=== PATIENT | female | born 1955 | race Caucasian/White ===

== ENCOUNTER 2024-05-08 10:43 | Outpatient (CLI) | payer MEDICARE, MEDICAID, SELFPAY ==
--- NOTE | ~2024-05-08 | CT_ITS ---
CT Scan of the Chest without Contrast: Clinical Indication: Lung cancer screening, nicotine dependence Technique: Contiguous sections were acquired throughout the chest without intravenous contrast. Dose reduction technique was used on this scan by utilizing automated exposure control and iterative recon struction technique. The dose-length product (DLP) was 83.86 mGy-cm. Findings: There is no evidence of any significant mediastinal, hilar or axillary lymphadenopathy. The mediastin al soft tissues appear normal. There is no evidence of pleural or pericardial effusion. There is right basilar curvilinear scarring with calcified granuloma or possibly suture line. Images through the upper abdomen reveal no abnormalities. Impression: Lung RADS 2: Benign appearance. 12 month follow-up screening CT advised. Reviewed, dictated and finalized at location . Impression: Lung RADS 2: Benign appearance. 12 month follow-up screening CT advised.
== END 2024-05-08 10:44 | disposition home or self-care (01) ==
LOC: MICIMG 10:44
PROVIDERS: PCP Family Medicine; Visit Provider Family Medicine
DX: Z12.2 Encounter for screening for malignant neoplasm of respiratory organs (principal); Z87.891 Personal history of nicotine dependence
CPT/HCPCS: 71271

== ENCOUNTER 2024-07-04 13:32 | Outpatient (CLI) | payer MEDICARE, SELFPAY ==
--- NOTE | ~2024-07-04 | MR_ITS ---
EXAMINATION: MR shoulder LT wo con DATE: 07/04/2024 14:41 INDICATION: Left shoulder pain. TECHNIQUE: Magnetic resonance imaging (MRI) of the left shoulder was performed without intravenous co ntrast. Sequences included axial PD-weighted FS FSE, coronal oblique PD-weighted FS FSE and T2-weight ed FS FSE, and sagittal oblique T2-weighted FS FSE and T1-weighted FSE. COMPARISON: None. FINDINGS: Coracoacromial arch: The acromion undersurface is curved in morphology (type II). There is severe acromioclavicular joint osteoarthritis. There is mild subacromial/subdeltoid bursitis. Rotator cuff: There is mild supraspinatus and infraspinous tendinopathy. Teres minor tendon is normal. Subscapulari s tendon is normal. No tear. There is no asymmetric fatty atrophy of the rotator cuff muscle bellies. Biceps tendon and glenoid labrum: Biceps tendon is in bicipital groove. Intra-articular biceps tendon is normal. The glenoid labrum is normal. Fluid: There is no glenohumeral joint effusion. Bones/cartilage: Glenoid cartilage is normal. Humeral head cartilage is normal. IMPRESSION: 1. Mild rotator cuff tendinopathy. No tear. 2. Mild subacromial/subdeltoid bursitis. 3. Severe acromioclavicular joint osteoarthritis. Reviewed, dictated and finalized at location A. E SUGAR MAKER
--- NOTE | ~2024-07-04 | MR_ITS ---
EXAMINATION: MR shoulder RT wo con DATE: 07/04/2024 14:24 INDICATION: Right shoulder pain. TECHNIQUE: Magnetic resonance imaging (MRI) of the right shoulder was performed without intravenous c ontrast. Sequences included axial PD-weighted FS FSE, coronal oblique PD-weighted FS FSE and T2-weigh pantera FS FSE, and sagittal oblique T2-weighted FS FSE and T1-weighted FSE. COMPARISON: None. FINDINGS: Coracoacromial arch: The acromion undersurface is curved in morphology (type II). There is severe acromioclavicular joint osteoarthritis. There is mild subacromial/subdeltoid bursitis. Rotator cuff: There is moderate supraspinatus and infraspinatus tendinopathy. Teres minor tendon is normal. Subscap ularis tendon is normal. No tear. There is no asymmetric fatty atrophy of the rotator cuff muscle bel lies. Biceps tendon and glenoid labrum: Biceps tendon is in bicipital groove. Intra-articular biceps tendon is normal. The glenoid labrum is normal. Fluid: There is no glenohumeral joint effusion. Bones/cartilage: There is cartilage surface irregularity of glenoid. Humeral head cartilage is normal. IMPRESSION: 1. Moderate rotator cuff tendinopathy. No tear. 2. Mild glenoid chondrosis. 3. Severe acromioclavicular joint osteoarthritis. 4. Mild subacromial/subdeltoid bursitis. Reviewed, dictated and finalized at location A. AUTOMATION ENGINEER
== END 2024-07-04 13:33 | disposition home or self-care (01) ==
LOC: MICIMG 13:32
PROVIDERS: PCP Family Medicine; Visit Provider Family Medicine
DX: M19.011 Primary osteoarthritis, right shoulder (principal); M19.012 Primary osteoarthritis, left shoulder; G89.29 Other chronic pain; M94.211 Chondromalacia, right shoulder; M75.51 Bursitis of right shoulder; M75.52 Bursitis of left shoulder; M75.22 Bicipital tendinitis, left shoulder; M75.21 Bicipital tendinitis, right shoulder
CPT/HCPCS: 73221

== ENCOUNTER 2024-10-27 14:14 | Emergency (ER) | payer MEDICARE, MEDICAID, SELFPAY ==
--- NOTE | ~2024-10-27 | XR_ITS ---
XR hand LT min 3V Ordering provider: Evelyn Marte APRN History: . dog bite, 2nd 3rd finger skin tears . Comparison: None. FINDINGS: BONES: No acute fracture or dislocation. JOINT SPACES: Narrowing of the distal interphalangeal joints. Narrowing of the joint between the scap hoid and trapezium bone. SOFT TISSUES: Unremarkable. IMPRESSION: No acute osseous abnormality left hand. Polyarticular osteoarthritic changes. Reviewed, dictated and finalized at location A.
--- NOTE | 2024-10-27 14:19 | ED_ITS ---
HPI - Animal Bite General Chief Complaint: Animal Bite Stated Complaint: LT Hand dog bite Time Seen by Provider: 10/27/24 14:30 Source: patient, RN notes reviewed and old records reviewed Mode of arrival: ambulatory Limitations: no limitations History of Present Illness HPI narrative: 69-year-old female presents to the [facility] with complaints of a dog bite. Patient reports that she was trying to remove her family member's dog to help the her family member. Dog nipped her 2nd 3rd finger on left hand. Abrasions and skin tear noted to the dorsal aspect. Bleeding is controlled Unknown last Tdap Onset (ago): hour(s) (1-2) Treatments prior to arrival: irrigation and other (Peroxide) Related Data Patient tetanus UTD: No Home Medications ?Medication ?Instructions ?Recorded ?Confirmed ?Last Taken ?Type albuterol sulfate 90 mcg/actuation 1 puff inhalation Q4H PRN 04/25/24 10/03/24 Unknown History aerosol inhaler fluticasone fur. 200 mcg-umeclid 1 inh inhalation DAILY 04/25/24 10/03/24 Unknown History 62.5 mcg-vilant 25 mcg inhalat.powder (Trelegy Ellipta) turmeric (bulk) 95 % powder ea miscellaneous 05/04/24 10/03/24 Unknown History (Curcumin) Allergies Allergy/AdvReac Type Severity Reaction Status Date / Time clindamycin Allergy Intermediate Dyspnea / Verified 10/27/24 14:40 SOB Penicillins Allergy Mild Hives Verified 10/27/24 14:40 bupropion AdvReac Intermediate Agitated Verified 10/27/24 14:40 adhesive tape AdvReac Mild SKIN PEELS Verified 10/27/24 14:40 Review of Systems Review of Systems: All systems reviewed & are unremarkable except as noted in HPI and below Constitutional: Constitutional: Reports no additional constitutional complaints ENT: Reports system reviewed and no additional complaints, except as documented Cardiovascular: Cardiovascular: Reports no additional cardiovascular complaints, Denies chest pain and Denies dyspnea Respiratory: Respiratory: Reports no additional respiratory complaints, Denies chest congestion, Denies cough and Denies dyspnea Musculoskeletal: Musculoskeletal: Reports no additional musculoskeletal complaints Integumentary/Breasts: Skin/Breast: Reports as per HPI [facility] Past Medical History Medical History Seborrheic keratosis SLE (systemic lupus erythematosus related syndrome) RA (rheumatoid arthritis) Surgical History Surgical History History of hysterectomy 1979 Family History Family History Mother Family history of thyroid disease Diabetes mellitus Depression Family history of chronic obstructive pulmonary disease Father Diabetes mellitus Family history of Parkinson's disease Other Family history of alcoholism Family history of lupus erythematosus Family history of rheumatoid arthritis Social History Social History Smoking status: Heavy tobacco smoker Tobacco type: cigarettes Alcohol intake: never Substance use: never Substance use type: does not use Do You Feel Safe in your Home?: Yes Lack of Transportation: No Lack of Food: Sometimes True Current Housing: I Have Housing Concerned About Future Housing: No Difficulty Paying Gas/Electric Bills: No Difficulty Paying for Meds: No Currently Unemployed: No Education: Trade/Vocational Certificate Difficulty w/ Childcare or Family Care: No Comments At the time of my signature, I reviewed and agree with the nursing past medical, surgical, social, and family history. There is no relevant family history pertinent to the patient complaint. Exam Const: General: cooperative, comfortable, no acute distress, well developed, alert and well nourished Nutritional Appearance: well nourished Orientat ion/consciousness: patient oriented x3 Limitations: no limitations HENMT: Head: normal to inspection Eyes: General: appearance normal, both eyes and all related structures Alignment and Position: alignment normal Neck: Neck: normal visual inspection, full ROM, no lymphadenopathy and no meningeal signs Chest: Chest palpation & inspection: normal inspection of the chest Resp: Effort & Inspection: normal respiratory effort and able to speak in complete sentences Cardio: Rate: regular rate Skin: General skin exam: normal color and no rashes or lesions noted Wounds: wounds noted Other: Dorsal proximal 2nd finger, skin tears noted. Abrasions noted to the distal aspect 2nd finger as well as to areas of the 3rd finger. Bleeding is controlled. Full range of motion. Sensation intact with capillary refill under 2 seconds. Neuro: General: patient oriented x3, gait normal, moves all extremities and no meningeal signs Cognition (Neuro): normal cognition Speech: normal speech Gait exam (Neuro): Normal gait present Extrem: General: normal to inspection, full ROM, capillary refill normal and normal gait Psych: Appearance: grossly normal and well kempt Mental Status: mental status grossly normal Speech and movement: Normal speech and movement present and Clear speech present Affect: normal affect Attitude: cooperative Course Course Emergency Course: Area irrigated with total of 200 mL of saline and wound cleanser. Skin tear to the dorsal aspect 2nd finger, applied 2 Steri-Strips to keep skin tear in place. Level of Care: Express Care Visit Vital Signs Vital signs: Vital Signs Temperature 97.4 F L 10/27/24 14:31 Pulse Rate 87 10/27/24 14:31 Respiratory Rate 16 10/27/24 14:31 Blood Pressure 99/72 L 10/27/24 14:31 Pulse Oximetry 100 10/27/24 14:31 Oxygen Delivery Room Air 10/27/24 14:31 Temperature 97.4 F L 10/27/24 14:31 Pulse Rate 87 10/27/24 14:31 Respiratory Rate 16 10/27/24 14:31 Blood Pressure 99/72 L 10/27/24 14:31 Pulse Oximetry 100 10/27/24 14:31 Oxygen Delivery Room Air 10/27/24 14:31 Reviewed MDM - Animal Bite MDM Narrative Medical decision making narrative: Patient sitting comfortably in exam room. Nontoxic, vitals stable. Patient presents with a dog bite/abrasions, skin tear to the 2nd and 3rd fingers left hand. Updated tetanus. Covering with an antibiotic. Used Steri-Strips for the skin tear 2nd finger. Discussed treatment outpatient as well as importance of follow-up. Discharge instructions reviewed with patient, as well as provided in writing per nursing staff. The instructions also include specific and strict return/GO TO THE ER as well as f/u information. All questions have been answered, and the patient deny any further questions with discharge and discharge plan. Some parts of this dictation were generated by voice recognition software and may contain typographical and/or grammatical inaccuracies. Differential Diagnosis Differential diagnosis: Likely bite by animal and dog bite Imaging Data Radiologist's impression: XR hand LT min 3V Ordering provider: Evelyn Marte APRN History: . dog bite, 2nd 3rd finger skin tears . Comparison: None. FINDINGS: BONES: No acute fracture or dislocation. JOINT SPACES: Narrowing of the distal interphalangeal joints. Narrowing of the joint between the scaphoid and trapezium bone. SOFT TISSUES: Unremarkable. IMPRESSION: No acute osseous abnormality left hand. Polyarticular osteoarthritic changes. Critical Care Time Critical Care Time Critical Care Time: No Discharge Plan Discharge Clinical Impression: Dog bite, Vaccine for [id number], combined Patient Disposition: Home, Self-Care Condition: Stable Instructions: Antibiotic Form, Animal Bite (ED), Skin Tear (ED) Additional Instructions: Rest, ice and elevate every 2-3 hours for 15-20 minutes while awake. Take Tylenol as needed for pain. Keep area clean and dry. Wash 2 to 3 times a day with warm soapy water, pat dry. Follow-up with primary care provider For new or worsening symptoms please go directly Patient Language: [place] Prescriptions: New cefuroxime axetil 500 mg tablet 500 mg PO BID Qty: 14 0RF metronidazole 500 mg tablet 500 mg PO Q8H 7 Days Qty: 21 0RF No Action Trelegy Ellipta 200-62.5-25 mcg blister with device 1 inh inhalation DAILY albuterol sulfate 90 mcg/actuation HFA aerosol inhaler 1 puff inhalation Q4H PRN Curcumin 95 % powder miscellaneous levothyroxine [Synthroid] 100 mcg tablet 100 mcg PO DAILY Qty: 90 0RF Follow-up/Referrals: Kenneth Aguilar DO [Primary Care Provider] - 1 Week Stand Alone Forms: Work/School Release IP Time of Disposition: 15:05
--- OUTSIDE RECORDS SUMMARY | 2024-10-27 14:29 | XMS_ITS | Encounter Summary ---
Author Organization [facility] Address [address] [place] [address] Care Team Providers Care Sustainability Specialist Name Role Phone Aminta Morales NP Primary Care Provider [phone] Kenneth Aguilar DO Primary Care Provider [phone] Encounter Details Date Type Department Care Team (Late st Contact Info) Description 01/26/2024 [employer] Message Enc [facility] Medical Group Family Medicine - [place] [address] [facility] [address] [place] [phone] Aminta Morales, RACHEL [address] [place] [address] [employer] Social History Tobacco Use Types Packs/Day Years Used Date Smoking Tobacco: Every Day Cigarettes 1 40 Passive Smoke Exposure: Current Smokeless Tobacco: Current Comments:When shes reaady Alcohol Use Standard Drinks/Week Comments No 0 (1 standard drink = 0.6 oz pur e alcohol) AUDIT-C Answer Date Recorded Q1: How often do you have a drink containing alcohol? Never 10/06/2023 Q2: How many drinks containi ng alcohol do you have on a typical day when you are drinking? Patient does not drink Q3: How often do you have si x or more drinks on one occasion? Never 10/06/2023 PHQ-2 Answer Date Recorded Patient Health Questionnaire-2 Score 6 10/06/2023 Education Answer Date Recorded What is the highest level of school you have completed or the highest degree you have received? Some college, no degree 11/21/2018 Comments No Sex and Gender Information Value Date Recorded Sex Assigned at Female 11/21/2018 9:34 AM CDT Legal Sex Female 10:58 PM CDT Gender Identity Female 11/21/2018 9:34 AM CDT Sexual Orientation Straight 11/21/2018 9: 34 AM CDT documented as of this encounter Progress Notes * Ashley Stiles MA - 02/03/2024 12:08 PM CDT I spoke with annette and I place a new message in Gene's record * Ashley Stiles MA - 02/03/2024 11:28 AM CDT I tried to call Gene, no answer or voicemail. So I sent a my chart message trying to find out how much Metformin he is currently taking. documented in this encounter Plan of Treatment Not on file documented as of this encounter Visit Diagnoses Not on filedocumented in this encounter Additional Health Concerns Assessment Noted Time PHQ-9 Depression Total Score: 10 10/06/2 024 3:24 PM CRUISE STAFF MEMBER documented as of this encounter Care Teams Sustainability Specialist Relationship Specialty Start Date End Date Aminta Morales NP [address] [place] [address] PCP - General NURSE PRACTITIONER 06/24/23 05/22/24 Kenneth Aguilar DO [address] [place] [address] PCP - General FAMILY PRACTICE 07/26/24 documented as of this encounter
--- OUTSIDE RECORDS SUMMARY | 2024-10-27 14:29 | XMS_ITS | Encounter Summary ---
Author Organization [facility] Address [address] [place] [address] Care Team Providers Care Vp Customer Development Name Role Phone Maria Elena Robertson MD Primary Care Provider [phone] Aminta Morales NP Primary Care Provider [phone] Maria Elena Robertson MD Primary Care Provider [phone] Aminta Morales NP Primary Care Provider [phone] Kenneth Aguilar DO Primary Care Provider [phone] Encounter Details Date Type Department Care Team (Late st Contact Info) Description 05/13/2022 Brigade Message Enc [facility] Medical Group Family & Internal Medicine [address] [id number] Giorgio [facility] Provider Mammogram Social History Tobacco Use Types Packs/Day Years Used Date Smoking Tobacco: Every Day Cigarettes 1 40 Smokeless Tobacco: Never Comments:When shes reaady Alcohol Use Standard Drinks/Week Comments No 0 (1 standard drink = 0.6 oz pur e alcohol) AUDIT-C Answer Date Recorded Frequency of Alcohol Consumption Never 07/12/2018 Average Number of Drinks Not on file 018 Frequency of Binge Drinking Not on file 11/2017 PHQ-2 Answer Date Recorded PHQ-2 Score - If the patient scores above 3, please move on to questions 3-9 0 02/27/2022 Education Answer Date Recorded What is the [...] AM CDT documented as of this encounter Plan of Treatment Not on file documented as of this encounter Visit Diagnoses Not on filedocumented in this encounter Additional Health Concerns Assessment Noted Time PHQ-9 Depression Total Score: 15 021 9:17 AM CDT documented as of this encounter Care Teams Vp Customer Development Relationship Specialty [place] [address] [place] [address] PCP - General FAMILY PRACTICE 02/27/22 02/17/23 Aminta Morales NP [address] [place] [address] PCP - General NURSE PRACTITIONER 02/18/23 02/23/23 [place] [address] [address] [place] [address] PCP - General FAMILY PRACTICE 02/24/23 06/23/23 Aminta Morales NP [address] [place] [address] PCP - General NURSE PRACTITIONER 06/24/23 05/22/24 Kenneth Aguilar DO [address] [place] [address] PCP - General FAMILY PRACTICE 07/26/24 documented as of this encounter
--- OUTSIDE RECORDS SUMMARY | 2024-10-27 14:29 | XMS_ITS | Encounter Summary ---
Author Organization [facility] Address [address] [place] [address] Care Team Providers Care Senior Game Advisor Name Role Phone Aminta Morales NP Primary Care Provider [phone] Kenneth Aguilar DO Primary Care Provider [phone] Encounter Details Date Type Department Care Team (Late st Contact Info) Description 11/02/2023 [employer] Message Enc [facility] Medical Group Family Medicine - [place] [address] [address] Giorgio, [facility] Provider Referral Social History Tobacco Use Types Packs/Day Years [...] Noted Time PHQ-9 Depression Total Score: 10 10/06/ 024 3:24 PM 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
--- OUTSIDE RECORDS SUMMARY | 2024-10-27 14:29 | XMS_ITS | Encounter Summary ---
Author Organization [facility] Address [address] [place] [address] Care Team Providers Care Vault Keeper Name Role Phone Aminta Morales NP Primary Care Provider [phone] Kenneth Aguilar DO Primary Care Provider Encounter Details Date Type Department Care Team (Late st Contact Info) Description 10/25/2023 [employer] Message Enc [facility] Medical Group Family Medicine - [place] [address] [facility] [address] [place] [phone] Aminta Morales, RACHEL [address] [place] [address] Surgery Social History Tobacco Use Types Packs/Day Years [...] Noted Time PHQ-9 Depression Total Score: 10 024 3:24 PM MAT WEAVER documented as of this encounter Care Teams Vault Keeper Relationship Specialty Start Date End Date Aminta Morales NP [address] [place] [address] [place] [address] PCP - General NURSE PRACTITIONER 06/24/23 05/22/24 Kenneth Aguilar DO [address] [place] [address] PCP - General FAMILY PRACTICE 07/26/24 documented as of this encounter
--- OUTSIDE RECORDS SUMMARY | 2024-10-27 14:29 | XMS_ITS | Encounter Summary ---
Author Organization [facility] Address [address] [place] [address] Care Team Providers Care Box Toe Maker Name Role Phone Aminta Morales NP Primary Care Provider [phone] Kenneth Aguilar DO Primary Care Provider [phone] Encounter Details Date Type Department Care Team (Late st Contact Info) Description 11/08/2023 [employer] Message Enc [facility] Medical Group Family Medicine - [place] [address] [facility] [address] [place] [address] [phone] Aminta Morales, RACHEL [address] [place] [address] Test results Social History Tobacco Use Types Packs/Day Years [...] Total Score: 10 10/06/ 024 3:24 PM METROLOGY SPECIALIST documented as of this encounter Care Teams Box Toe Maker Relationship Specialty Start Date End Date Aminta Morales NP [address] [place] [address] PCP - General NURSE PRACTITIONER 06/24/23 05/22/24 Kenneth Aguilar DO [address] [place] [address] PCP - General FAMILY PRACTICE 07/26/24 documented as of this encounter
--- OUTSIDE RECORDS SUMMARY | 2024-10-27 14:29 | XMS_ITS | Encounter Summary ---
Author Organization [facility] Address [address] [place] [address] Care Team Providers Care Casino Slot Supervisor Name Role Phone Aminta Morales NP Primary Care Provider [phone] Kenneth Aguilar DO Primary Care Provider [phone] Encounter Details Date Type Department Care Team (Late st Contact Info) Description 03/13/2024 Played Message Enc [facility] Medical Group Family Medicine - [place] [address] [facility] [address] [place] [address] Aminta Morales, RACHEL [address] [place] [address] Labs Social History Tobacco Use Types Packs/Day Years [...] Depression Total Score: 10 024 3:24 PM 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
--- OUTSIDE RECORDS SUMMARY | 2024-10-27 14:29 | XMS_ITS | Encounter Summary ---
Author Organization [facility] Address [address] [place] [address] Care Team Providers Care Guest Services Manager Name Role Phone Aminta Morales NP Primary Care Provider [phone] Kenneth Aguilar DO Primary Care Provider [phone] Encounter Details Date Type Department Care Team (Late st Contact Info) Description 04/12/2024 [employer] Message Enc [facility] Medical Group Family Medicine - [place] [address] [facility] [address] [place] [address] [phone] Aminta Morales, RACHEL [address] [place] [address] Arthritis pain Social History Tobacco Use Types Packs/Day Years [...] Total Score: 10 10/06/ 024 3:24 PM COST ACCOUNTING MANAGER documented as of this encounter Care Teams Guest Services Manager Relationship Specialty Start Date End Date Aminta Morales NP [address] [place] [address] PCP - General NURSE PRACTITIONER 06/24/23 05/22/24 Kenneth Aguilar DO [address] [place] [address] PCP - General FAMILY PRACTICE 07/26/24 documented as of this encounter
--- OUTSIDE RECORDS SUMMARY | 2024-10-27 14:29 | XMS_ITS | Encounter Summary ---
Author Organization [facility] Address [address] [place] [address] Care Team Providers Care District Director Name Role Phone Aminta Morales NP Primary Care Provider [phone] Kenneth Aguilar DO Primary Care Provider [phone] Encounter Details Date Type Department Care Team (Late st Contact Info) Description 09/22/2023 Hospital Orders Only [facility] Medical Group Family Medicine - [place] [address] [facility] [address] [place] [address] Aminta Morales, RACHEL [address] [place] [address] Social History Tobacco Use Types Packs/Day Years [...] on file 11/2017 PHQ-2 Answer Date Recorded Patient Health Questionnaire-2 Score 0 01/26/2023 Education Answer Date Recorded What is the [...] Assessment Noted Time PHQ-9 Depression Total Score: 4 01/27/20 23 8:37 AM CDT documented as of this encounter Care Teams District Director Relationship Specialty Start Date End Date Aminta Morales NP [address] [place] [address] PCP - General NURSE PRACTITIONER 06/24/23 05/22/24 Kenneth Aguilar DO [address] [place] [address] PCP - General FAMILY PRACTICE 07/26/24 documented as of this encounter
--- OUTSIDE RECORDS SUMMARY | 2024-10-27 14:29 | XMS_ITS | Encounter Summary ---
Author Organization [facility] Address [address] [place] [address] Care Team Providers Care Patent Solicitor Name Role Phone Maria Elena Robertson MD Primary Care Provider [phone] Aminta Morales NP Primary Care Provider [phone] Maria Elena Robertson MD Primary Care Provider [phone] Aminta Morales HEALTH DATA ADMINISTRATOR Primary Care Provider [phone] Kenneth Aguilar DO Primary Care Provider [phone] Encounter Details Date Type Department Care Team (Late st Contact Info) Description 05/26/2022 ArrayComm Message Enc [facility] Medical Group Family & Internal Medicine [facility] [address] [place] [phone] Maria [place] [id number] [place] [address]. [address] [place] [address] Omar Crocker's blood sugars Social History Tobacco Use Types Packs/Day Years [...] Orientation Straight 11/21/2018 9: 34 AM CDT COVID-19 Exposure Response Date Recorded In the last 10 days, have yo u been in contact with someone who was confirmed or suspected to have Coronavirus/COVID-19? No / Unsure 05/20/2022 8:28 AM CDT documented as of this encounter Progress Notes * Adamaris Tolbert RN - 05/27/2022 10:38 AM CDT Please advise documented in this encounter Plan of Treatment Not on file documented as of this encounter Visit Diagnoses Not on filedocumented in this encounter Additional Health Concerns Assessment Noted Time PHQ-9 Depression Total Score: 15 021 9:17 AM CDT documented as of this encounter Care Teams Patent Solicitor Relationship Specialty [place] [address] [place] [address] PCP - General FAMILY PRACTICE 02/27/22 02/17/23 Aminta Morales NP [address] [place] [address] PCP - General NURSE PRACTITIONER 02/18/23 02/23/23 [place] [address] [place] [address] PCP - General FAMILY PRACTICE 02/24/23 06/23/23 Aminta Morales NP [address] [place] [address] PCP - General NURSE PRACTITIONER 06/24/23 05/22/24 Kenneth Aguilar DO [address] [place] [address] PCP - General FAMILY PRACTICE 07/26/24 documented as of this encounter
--- OUTSIDE RECORDS SUMMARY | 2024-10-27 14:29 | XMS_ITS | Encounter Summary ---
Author Organization [facility] Address [address] [place] [address] Care Team Providers Care Personal Consultant Name Role Phone Aminta Morales NP Primary Care Provider [phone] Kenneth Aguilar DO Primary Care Provider [phone] Encounter Details Date Type Department Care Team (Late st Contact Info) Description 02/22/2024 Shoplins Message Enc [facility] Medical Group Family Medicine - [place] [address] [facility] [address] [place] [id number] Aminta Morales, RACHEL [address] [place] [address] Osteoarthritis Social History Tobacco Use Types Packs/Day Years [...] as of this encounter Progress Notes * Aminta Morales NP - 03/03/2024 9:52 AM CDT Can you please place an external referral to sports medicine for left shoulder pain and osteoarthritis. Please put in the comments patient wants to stay close to home she would like to see someone [facility] or Edgardo. documented in this encounter Plan of Treatment Not on file documented as of this encounter Visit Diagnoses Not on filedocumented in this encounter Additional Health Concerns Assessment Noted Time PHQ-9 Depression Total Score: 10 10/06/ 024 3:24 PM MOLD MAKER PLASTER documented as of this encounter Care Teams Personal Consultant Relationship Specialty Start Date End Date Aminta Morales NP [address] [place] [address] PCP - General NURSE PRACTITIONER 06/24/23 05/22/24 Kenneth Aguilar DO [address] [place] [address] PCP - General FAMILY PRACTICE 07/26/24 documented as of this encounter
--- OUTSIDE RECORDS SUMMARY | 2024-10-27 14:29 | XMS_ITS | Encounter Summary ---
Author Organization [facility] Address [address] [place] [address] Care Team Providers Care Construction Representative Name Role Phone Aminta Morales NP Primary Care Provider [phone] Kenneth Aguilar DO Primary Care Provider Encounter Details Date Type Department Care Team (Late st Contact Info) Description 10/25/2023 Investview Message Enc [facility] Medical Group Family Medicine - [place] [address] [facility] [address] [place] [address] [phone] Aminta Morales, RACHEL [address] [place] [address] RA or Lupus Social History Tobacco Use Types Packs/Day Years [...] Total Score: 10 10/06/ 024 3:24 PM EMERGENCY DEPT TECH documented as of this encounter Care Teams Construction Representative Relationship Specialty Start Date End Date Aminta Morales NP [address] [place] [address] PCP - General NURSE PRACTITIONER 06/24/23 05/22/24 Kenneth Aguilar DO [address] [place] [address] PCP - General FAMILY PRACTICE 07/26/24 documented as of this encounter
--- OUTSIDE RECORDS SUMMARY | 2024-10-27 14:29 | XMS_ITS | Encounter Summary ---
Author Organization [facility] Address [address] [place] [address] Care Team Providers Care Restaurant Line Server Name Role Phone Aminta Morales NP Primary Care Provider [phone] Kenneth Aguilar DO Primary Care Provider Encounter Details Date Type Department Care Team (Late st Contact Info) Description 12/27/2023 Bettymovil Message Enc [facility] Medical Group Family Medicine - [place] [address] [facility] [address] [place] [phone] Aminta Morales, RACHEL [address] [place] [address] Follow up Social History Tobacco Use Types Packs/Day Years [...] Total Score: 10 10/06/ 024 3:24 PM PAYMENT REP documented as of this encounter Care Teams Restaurant Line Server Relationship Specialty Start Date End Date Aminta Morales NP [address] [place] [address] PCP - General NURSE PRACTITIONER 06/24/23 05/22/24 Kenneth Aguilar DO [address] [place] [address] PCP - General FAMILY PRACTICE 07/26/24 documented as of this encounter
--- OUTSIDE RECORDS SUMMARY | 2024-10-27 14:29 | XMS_ITS | Encounter Summary ---
Author Organization [facility] Address [address] [place] [address] Care Team Providers Care Cnc Lathe Machine Operator Name Role Phone Aminta Morales NP Primary Care Provider [phone] Kenneth Aguilar DO Primary Care Provider Encounter Details Date Type Department Care Team (Late st Contact Info) Description 04/01/2024 Commutable Message Enc [facility] Medical Group Family Medicine - [place] [address] [facility] [address] [place] [address] [phone] Aminta Morales, RACHEL [address] [place] [address] Right hand Social History Tobacco Use Types Packs/Day Years [...] Total Score: 10 10/06/ 024 3:24 PM CHAIR INSPECTOR AND LEVELER documented as of this encounter Care Teams Cnc Lathe Machine Operator Relationship Specialty Start Date End Date Aminta Morales NP [address] [place] [address] PCP - General NURSE PRACTITIONER 06/24/23 05/22/24 Kenneth Aguilar DO [address] [place] [address] PCP - General FAMILY PRACTICE 07/26/24 documented as of this encounter
--- OUTSIDE RECORDS SUMMARY | 2024-10-27 14:29 | XMS_ITS | Encounter Summary ---
Author Organization [facility] Address [address] [place] [address] Care Team Providers Care Salvage Machine Operator Name Role Phone Hong Hathaway MD Unavailable [phone] Dannielle Orozco MD Primary Care Provider Unavailab le Hong Hathaway MD Unavailable Ivania Han COPPING MACHINE OPERATOR Primary Care Provider Unav ailable Ivania Han COPPING MACHINE OPERATOR Primary Care Provider Unav ailable Chuyita Razo [facility] Primary Care Provider + Omar Santa MD Primary Care Provider [phone] Maria Elena Robertson MD Primary Care Provider [phone] Aminta Morales COPPING MACHINE OPERATOR Primary Care Provider [phone] Maria Elena Robertson MD Primary Care Provider [phone] Aminta Morales COPPING MACHINE OPERATOR Primary Care Provider [phone] Kenneth Aguilar DO Primary Care Provider [phone] Encounter Details Date Type Department Care Team (Late st Contact Info) Description 10/07/2015 Abstract [facility] CONVERSION [address] [place], [place] [id number] , Generic MD Edmund Social History Tobacco Use Types Packs/Day Years Used Date Smoking Tobacco: Former Comments Unknown Sex and Gender Information Value Date Recorded Sex Assigned at Female 11/21/2018 9:34 AM CDT Legal Sex Female 10:58 PM CDT Gender Identity Female 11/21/2018 9:34 AM CDT Sexual Orientation Straight 11/21/2018 9: 34 AM CDT documented as of this encounter Plan of Treatment Not on file documented as of this encounter Visit Diagnoses Not on filedocumented in this encounter Additional Health Concerns Infection Onset Date Last Indicated Resolved Time COVID-19 Rule Out 12/19/2020 12/20/2020 12/20/2020 8:41 AM CDT documented as of this encounter Care Teams Salvage Machine Operator Relationship Specialty [place] [address] [place] [address] PCP - Med Group - [facility] Attributed Provider 10/07/18 06/12/19 [place] [address] [place] [address] PCP - General INTERNAL MEDICINE 09/25/19 12/07/19 [place] [address] [place] [address] PCP - Med Group [facility] Attributed Provider 10/09/19 08/09/20 [place] [address] [place] [address] PCP - General NURSE PRACTITIONER 12/11/19 12/14/19 [place] [address] [place] [address] PCP - General NURSE PRACTITIONER 12/20/19 05/19/21 [facility] [address] [place] [address] PCP - General Nurse Practitioner Family 05/20/21 09/18/21 Omar [place] [address] PCP - General INTERNAL MEDICINE 02/17/22 02/26/22 [place] [address] [place] [address] PCP - General FAMILY PRACTICE 02/27/22 02/17/23 Aminta Morales NP [address] [place] [address] PCP - General NURSE PRACTITIONER 02/18/23 02/23/23 [place] [address] [facility] [place] [address] PCP - General FAMILY PRACTICE 02/24/23 06/23/23 Aminta Morales NP [address] [place] [address] PCP - General NURSE PRACTITIONER 06/24/23 05/22/24 Kenneth Aguilar DO [address] [place] [address] PCP - General FAMILY PRACTICE 07/26/24 documented as of this encounter
--- OUTSIDE RECORDS SUMMARY | 2024-10-27 14:29 | XMS_ITS | Encounter Summary ---
Author Organization [facility] Address [address] [place] [address] Care Team Providers Care Film Splicer Name Role Phone Aminta Morales NP Primary Care Provider [phone] Kenneth Aguilar DO Primary Care Provider [phone] Encounter Details Date Type Department Care Team (Late st Contact Info) Description 10/15/2023 [employer] Message Enc [facility] Medical Group Family Medicine - [place] [address] [facility] [address] [place] [address] Aminta Morales, RACHEL [address] [place] [address] Xray Social History Tobacco Use Types Packs/Day Years [...] Total Score: 10 10/06/ 024 3:24 PM JAVA APPLICATION ENGINEER documented as of this encounter Care Teams Film Splicer Relationship Specialty Start Date End Date Aminta Morales NP [address] [place] [address] PCP - General NURSE PRACTITIONER 06/24/23 05/22/24 Kenneth Aguilar DO [address] [place] [address] PCP - General FAMILY PRACTICE 07/26/24 documented as of this encounter
--- OUTSIDE RECORDS SUMMARY | 2024-10-27 14:30 | XMS_ITS | Encounter Summary ---
Author Organization [facility] Address [address] [place] [address] Care Team Providers Care Submarine Worker Name Role Phone Hong Hathaway MD Unavailable [phone] Dannielle Orozco MD Primary Care Provider Unavailab le Hong Hathaway MD Unavailable [phone] Ivania Han BUILDING ASSOCIATE Primary Care Provider Unav ailable Ivania Han BUILDING ASSOCIATE Primary Care Provider Unav ailable Chuyita Razo [facility] Primary Care Provider + Omar Santa MD Primary Care Provider [phone] Maria Elena Robertson MD Primary Care Provider [phone] Aminta Morales BUILDING ASSOCIATE Primary Care Provider [phone] Maria Elena Robertson MD Primary Care Provider [phone] Aminta Morales BUILDING ASSOCIATE Primary Care Provider [phone] Kenneth Aguilar DO Primary Care Provider [phone] Encounter Details Date Type Department Care Team (Late st Contact Info) Description 01/14/2019 Abstract [facility] CONVERSION [address] [place], [place] [id number] , Qian Shaffer MD Social History Tobacco Use Types Packs/Day Years Used Date Smoking Tobacco: Every Day Cigarettes 1 40 Smokeless Tobacco: Never Alcohol Use Standard Drinks/Week Comments No 0 (1 standard drink = 0.6 oz pur e alcohol) AUDIT-C Answer Date Recorded Frequency of Alcohol Consumption Never 07/12/2018 Average Number of Drinks Not on file 018 Frequency of Binge Drinking Not on file 11/2017 Education Answer Date Recorded What is the highest level of school you have completed or the highest degree you have received? Some college, no degree 11/21/2018 Comments Unknown Sex and Gender Information Value [...] documented as of this encounter Care Teams Submarine Worker Relationship Specialty [place] [address] [place] [address] PCP - Med Group - [facility] Attributed Provider 10/07/18 06/12/19 [place] [address] [place] [address] PCP - General INTERNAL MEDICINE 09/25/19 12/07/19 [place] [address] [place] [address] PCP - Med Group [facility] Attributed Provider 10/09/19 08/09/20 [place] [address] [place] [address] PCP - General NURSE PRACTITIONER 12/11/19 12/14/19 [place] [address] [place] [address] PCP - General NURSE PRACTITIONER 12/20/19 05/19/21 Chuyita Razo FNP- [address] [place] [address] PCP - General Nurse Practitioner Family 05/20/21 09/18/21 Omar Santa MD [address] [place] [address] PCP - General INTERNAL MEDICINE 02/17/22 02/26/22 [place] [address] [place] [address] PCP - General FAMILY PRACTICE 02/27/22 02/17/23 Aminta Morales NP [address] [place] [address] PCP - General NURSE PRACTITIONER 02/18/23 02/23/23 [place] [address] [address] [place] [address] PCP - General FAMILY PRACTICE 02/24/23 06/23/23 Aminta Morales NP [address] [place] [address] PCP - General NURSE PRACTITIONER 06/24/23 05/22/24 Kenneth Aguilar DO [address] [place] [address] PCP - General FAMILY PRACTICE 07/26/24 documented as of this encounter
--- OUTSIDE RECORDS SUMMARY | 2024-10-27 14:30 | XMS_ITS | Encounter Summary ---
Author Organization [facility] Address [address] [place] [address] Care Team Providers Care Reel Winder Name Role Phone Maria Elena Robertson MD Primary Care Provider [phone] Aminta Morales NP Primary Care Provider [phone] Maria Elena Robertson MD Primary Care Provider [phone] Aminta Morales TUFTING SUPERVISOR Primary Care Provider [phone] Kenneth Aguilar DO Primary Care Provider [phone] Encounter Details Date Type Department Care Team (Late st Contact Info) Description 09/25/2022 Rip[place]et Message Enc [facility] Medical Group Family & Internal Medicine [facility] [id number] [place] [phone] Maria Elena Robertson [place] [address] [place] [address]. [address] [place] [address] Omar Crocker Social History Tobacco Use Types Packs/Day Years Used Date Smoking Tobacco: Every Day Cigarettes 1 40 Smokeless Tobacco: Current Comments:When shes reaady Alcohol Use Standard Drinks/Week Comments No 0 (1 standard drink = 0.6 oz pur e alcohol) AUDIT-C Answer Date Recorded Frequency of Alcohol Consumption Never 07/12/2018 Average Number of Drinks Not on file 018 Frequency of Binge Drinking Not on file 11/2017 PHQ-2 Answer Date Recorded Patient Health Questionnaire-2 Score 0 07/27/2022 Education Answer Date Recorded What is the [...] Progress Notes * Adamaris Tolbert RN - 09/25/2022 4:07 PM CST Ok to fill Breo for Gene Eader 06/03/1951 It was not on current medication list RE SOFTWARE ASSESSOR documented in this encounter Plan of Treatment Not on file documented as of this encounter Visit Diagnoses Not on filedocumented in this encounter Additional Health Concerns Assessment Noted Time PHQ-9 Depression Total Score: 15 021 9:17 AM CDT documented as of this encounter Care Teams Reel Winder Relationship Specialty Start [place] [address] [place] [address] PCP - General FAMILY PRACTICE 02/27/22 02/17/23 Aminta Morales NP [address] [place] [address] PCP - General NURSE PRACTITIONER 02/18/23 02/23/23 [place] [address] [address] [place] [address] PCP - General FAMILY PRACTICE 02/24/23 06/23/23 Aminta Morales NP [address] [place] [address] PCP - General NURSE PRACTITIONER 06/24/23 05/22/24 Kenneth Aguilar DO [address] [place] [address] PCP - General FAMILY PRACTICE 07/26/24 documented as of this encounter
--- OUTSIDE RECORDS SUMMARY | 2024-10-27 14:30 | XMS_ITS | Encounter Summary ---
Author Organization [facility] Address [address] [place] [address] Care Team Providers Care Muffler Mechanic Name Role Phone Hong Hathaway MD Unavailable [phone] Dannielle Orozco MD Primary Care Provider Unavailab le Hnog Hathaway MD Unavailable [phone] Ivania Han LOFTER Primary Care Provider Unav ailable Ivania Han [place] Primary Care Provider Unav ailable Chuyita Razo [facility] Primary Care Provider + Omar Santa MD Primary Care Provider [phone] Maria Elena Robertson MD Primary Care Provider [phone] Aminta Morales LOFTER Primary Care Provider [phone] Maria Elena Robertson MD Primary Care Provider [phone] Aminta Morales LOFTER Primary Care Provider [phone] Kenneth Aguilar DO Primary Care Provider [phone] Encounter Details Date Type Department Care Team (Late st Contact Info) Description 12/16/2018 WIRE PREPARATION MACHINE TENDER ONLY [facility] Medical Group Priority Care - [address] [place] [address] Scanned, Documents Social History Tobacco Use Types Packs/Day Years Used Date Smoking Tobacco: Every Day Cigarettes 1 40 Smokeless Tobacco: Never Alcohol Use Standard Drinks/Week Comments No 0 (1 standard drink = 0.6 oz pur e alcohol) AUDIT-C Answer Date Recorded Frequency of Alcohol Consumption Never 07/12/2018 Average Number of Drinks Not on file 12/04/2 018 Frequency of Binge Drinking Not on [...] as of this encounter Progress Notes * Zscanned, Documents - 12/16/2018 12:00 AM CDT ANNETTE DUMONT MD: ACCT: [id number] ADMIT/SERVICE DATE: 12/16/18 DISCHARGE DATE: 12/16/18 : 1955 PT TYPE: DEP SDC SEX: F ORD SITE: [facility] REPORT OF PATHOLOGICAL EXAMINATION DATE OF SURGERY: 12/16/2018 SURGICAL PATH NO: [id number] DATE OBTAINED: 12/16/2018 DATE RETURNED: 12/19/2018 CHART DOCUMENT PATHOLOGICAL DIAGNOSIS: I. GALLBLADDER - CHOLECYSTECTOMY: - CHRONIC CHOLECYSTITIS AND CHOLELITHIASIS. - IMPACTION OF THE CYSTIC DUCT BY CALCULUS. SPECIMEN: GALLBLADDER GROSS EXAMINATION: THE SPECIMEN IS RECEIVED IN FORMALIN LABELED WITH PATIENT'S NAME AND GALLBLADDER. THE SPECIMEN CONSISTS OF A GALLBLADDER MEASURING 5 CM X 2.2 X 1.5. THE SEROSAL SURFACE IS YELLOW/CHARLES, ABOUT 60% IS PERITONEALIZED AND THERE ARE TWO METAL CLIPS IN THE AREA OF THE CYSTIC DUCT. OPENING THE GALLBLADDER REVEALS A DARK GREEN STONE MEASURING 1.5 CM IN GREATEST DIMENSION. THE STONE WAS FOUND LODGED IN THE CYSTIC DUCT. THE GALLBLADDER MUCOSA IS VELVETY RED/CHARLES WITH SOME YELLOW FLAKING AND THE WALL MEASURES 0.2 CM IN THICKNESS. CUFF STITCHER SECTIONS ARE SUBMITTED IN A SINGLE CASSETTE. TD/RC 12/16/2018 12/16/2018 02:28 P MICROSCOPIC EXAMINATION: SECTIONS OF THE GALLBLADDER SHOW MARKED HYPEREMIA AND EDEMA. THERE IS CHRONIC INFLAMMATION CONSISTING MAINLY OF LYMPHOCYTES PRESENT IN THE MUCOSA AND MUSCULAR WALL. SECTION OF THE CYSTIC DUCT SHOWS FOCAL EROSION OF THE MUCOSA WITH CHRONIC INFLAMMATION. ELECTRONICALLY SIGNED BY GABINO MATHEW MD 12/19/2018 01:25 P DT: BLAYNE/RC:12/19/2018 DOC NO: [id number] documented in this encounter Plan of Treatment Not on file documented as of this encounter Visit Diagnoses Not on filedocumented in this encounter Additional Health Concerns Infection Onset Date Last Indicated Resolved Time COVID-19 Rule Out 12/19/2020 12/20/2020 12/20/2020 8:41 AM CDT documented as of this encounter Care Teams Muffler Mechanic Relationship Specialty [place] [address] [place] [address] PCP - Med Group - [facility] Attributed Provider 10/07/18 06/12/19 [place] [address] [place] [address] PCP - General INTERNAL MEDICINE 09/25/19 12/07/19 [place] [address] [place] [address] PCP - Med Group - [facility] Attributed Provider 10/09/19 08/09/20 [place] [address] [place] [address] PCP - General NURSE PRACTITIONER 12/11/19 12/14/19 [place] [address] [place] [place] [address] PCP - General NURSE PRACTITIONER 12/20/19 05/19/21 [facility] [address] [place] [address] PCP - General Nurse Practitioner Family 05/20/21 09/18/21 Omar Santa [place] [address] PCP - General INTERNAL MEDICINE 02/17/22 02/26/22 [place] [address] [place] [address] PCP - General FAMILY PRACTICE 02/27/22 02/17/23 Aminta Morales NP [address] [place] [address] PCP - General NURSE PRACTITIONER 02/18/23 02/23/23 [place] [address] [address] [place] [address] PCP - General FAMILY PRACTICE 02/24/23 06/23/23 Aminta Morales NP [address] [place] [address] PCP - General NURSE PRACTITIONER 06/24/23 05/22/24 Kenneth Aguilar DO [address] [place] [address] PCP - General FAMILY PRACTICE 07/26/24 documented as of this encounter
--- OUTSIDE RECORDS SUMMARY | 2024-10-27 14:30 | XMS_ITS | Clinical Summary ---
Author Organization [facility] Address [facility] [place] [address] Care Team Providers Care Student Assistant Name Role Phone Kenneth Aguilar Primary Care Provider [phone] Allergies Active Allergy Reactions Criticality Noted Date Comments Buspirone Other (see comment) Medium 05/21/2023 IRRIATBILITY AND VERY ANGRY Clindamycin Shortness of Breath High 07/12/2018 Ketoconazole Rash Medium 01/11/2012 Rash Penicillin G Rash Medium 01/11/2012 Rash Tape Rash Low 01/10/2018 Medications * This document contains information received from the source organization and may not represent a complete record from that organization. B complex-C Cap capsule Take 1 capsule by mouth daily. Active albuterol sulfate HFA (PROAIR HFA) 108 (90 Base) MCG/ACT inhalerIndicatio ns:Mild intermittent asthma without complication (HHS/HCC) Inhale 2 puffs into the lungs every 6 (six) hours as needed for Shortness of breath. 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 FOR 14 DAYS 90 tablet 1 12/23/19 24 Active Fluticasone-Umec lidin-Vilant (TRELEGY ELLIPTA) 200-62.5-25 MCG/ACT AEROSOL POWDER, BREATH ACTIVATEDIndicat ions:Chronic obstructive pulmonary disease, unspecified COPD type (CMS/HCC HHS/HCC),Moderat e persistent asthma, unspecified whether complicated (HHS/HCC) Inhale 1 puff into the lungs daily. 28 each 3 12/23/19 24 Active vilazodone (VIIBRYD) 10 MG tabletIndication s:Anxiety and depression Take 1 tablet (10 mg total) by mouth daily. Take with food 7 tablet 12/14/19 24 025 Discontinued venlafaxine XR (EFFEXOR XR) 37.5 MG 24 hr capsuleIndicatio ns:Anxiety and depression Take 1 capsule (37.5 mg total) by mouth daily. Take one tablet by mouth for two weeks then stop 14 capsule 12/14/19 24 025 Discontinued vilazodone (VIIBRYD) 20 MG tabletIndication s:Anxiety and depression Take 1 tablet (20 mg total) by mouth daily. Take with food start after taking 10mg vilazodone for one week 90 tablet 1 12/14/19 24 025 Discontinued pantoprazole EC (PROTONIX) 40 MG tabletIndication s:Gastroesophage al reflux disease without esophagitis Take 1 tablet (40 mg total) by mouth daily. 90 tablet 1 12/23/19 24 025 Discontinued Vitamin D3 (VITAMIN D) 50 mcg tabletIndication s:Vitamin D deficiency Take 1 tablet (50 mcg total) by mouth daily. 90 tablet 1 12/27/19 24 025 Discontinued Active Problems Problem Noted Date Diagnosed Date Morbid (severe) obesity due to excess calories 1 08/24/2022 Body mass index (BMI) 40.0-44.9, adult 3 Pneumococcal vaccination declined 11/19/2022 Lumbar herniated disc 06/08/2021 Lumbar radiculopathy 06/08/2021 Class 2 severe obesity due t o excess calories with serious comorbidity and body mass index (BMI) of 37.0 to 37.9 in adult 06/07/2021 COVID-19 vaccination declined 06/07/2021 Influenza vaccination declined 06/07/2021 Antinuclear factor positive 09/03/2020 Carpal tunnel syndrome 09/03/2020 Pain in joint 09/03/2020 Metatarsalgia 02/26/2020 Bronchitis 02/19/2020 Blurred vision 09/25/2019 Chronic daily headache 09/25/2019 Dysphagia, unspecified type 09/25/2019 Gastroesophageal reflux disease without esophagi tis 09/07/2019 Assessment & Plan (09/07/2019 10:12 AM OTHER SPORTS OFFICIAL): Suspect symptoms due to reflux will restart PPI Chronic fatigue 07/21/2019 Abnormal finding on lung imaging 06/07/2019 Environmental and seasonal allergies 06/07/2019 Hair thinning 06/06/2018 Goiter 06/06/2018 Nontoxic multinodular goiter 04/05/2018 Polycythemia 04/05/2018 Neuropathy, peripheral axonal 02/01/2018 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 Had multiple questions and concerns today discussed and cleared all pt. Questions and concerns Total visit time 25 min , greater than 50 % of the visit time spent in answering pt all questions and concerns. Advised to c/w current Wellington thyroid 90 mg oral - take 6 days weekly, skip taking Wednesday Recheck TFT in 2 months Follow up in 6 months Desiccated animal thyroid (Wellington ), now mainly obtained from pigs, was the most common form of thyroid therapy before the individual active thyroid hormones were discovered. People can still buy it over the Internet--legally if it s Since pills made from animal thyroid are not purified, they contain hormones and proteins that never exist in the body outside of the thyroid gland. While desiccated thyroid contains both T4 and T3, the balance of T4 and T3 in animals is not the same as in humans, so the hormones in animal thyroid pills aren t necessarily n atural for the human body. Further, the amounts of both T4 and T3 can vary in every batch of desiccated thyroid, making it harder to keep blood levels right. Finally,even desiccated thyroid pills have chemicals (binders) in them to hold the pill together, so they are not completely n atural . Desiccated animal thyroid is rarely prescribed today, and there is no evidence that desiccated thyroid has any advantage over synthetic T4. Last Assessment & Plan: Pt. Had multiple questions and concerns today discussed and cleared all pt. Questions and concerns Total visit time 25 min , greater than 50 % of the visit time spent in answering pt all questions and concerns. Advised to c/w current Wellington thyroid 90 mg oral - take 6 days weekly, skip taking Wednesday Recheck TFT in 2 months Follow up in 6 months Desiccated animal thyroid (Wellington ), now mainly obtained from pigs, was the most common form of thyroid therapy before the individual active thyroid hormones were discovered. People can still buy it over the Internet--legally if it s Since pills made from animal thyroid are not purified, they contain hormones and proteins that never exist in the body outside of the thyroid gland. While desiccated thyroid contains both T4 and T3, the balance of T4 and T3 in animals is not the same as in humans, so the hormones in animal thyroid pills aren t necessarily n atural for the human body. Further, the amounts of both T4 and T3 can vary in every batch of desiccated thyroid, making it harder to keep blood levels right. Finally,even desiccated thyroid pills have chemicals (binders) in them to hold the pill together, so they are not completely n atural . Desiccated animal thyroid is rarely prescribed today, and there is no evidence that desiccated thyroid has any advantage over synthetic T4. Assessment & Plan (09/07/2019 10:04 AM OTHER SPORTS OFFICIAL): Con't FU with endo at [facility]. Last TSH, T3 and T4 in Aug were normal Cervical disc herniation 01/17/2016 Varicosities of leg 01/08/2016 Nocturia 05/22/2015 Vitamin D deficiency 05/22/2015 Depressive disorder 11/02/2014 Assessment & Plan (09/07/2019 10:05 AM OTHER SPORTS OFFICIAL): Advised may be causing her memory loss does not wish to start anything at this time Nicotine dependence 11/02/2014 Adjustment disorder with anxiety 10/01/2014 Insomnia 09/05/2014 Asthma ([facility]) 01/12/2014 COPD (chronic obstructive pu lmonary disease) ([facility]) 01/12/2014 Hypercholesterolemia 01/12/2014 Memory loss 01/12/2014 Lymphadenopathy 06/11/2011 Resolved Problems Problem Noted Date Diagnosed Date Resolved Date Heartburn 02/19/2020 06/08/2021 Disorder of lung 02/19/2020 06/08/2021 Word finding difficulty 09/25/201905/11 Light headedness 09/25/2019 06/07/2021 Abnormal PFT 06/07/2019 06/07/2021 Status post laparoscopic cholecystectomy 12/21/2018 06/07/2021 Biliary colic 11/23/2018 12/21/2018 Wears glasses 01/10/2018 04/19/2020 BMI 40.0-44.9, adult 02/22/2017 021 Tobacco abuse 02/22/2017 06/07/2021 Overview (10/01/2020): Last Assessment & Plan: Strongly advised to quit smoking Last Assessment & Plan: Strongly advised to quit smoking Non morbid obesity due to excess calories 02/22/2017 06/07/2021 Overview (10/01/2020): Last Assessment & Plan: Obesity is improving with treatment.( improving after hypothyroidism is treated ) Discussed the patient's BMI. The BMI is above average; BMI management plan is completed. General weight loss/lifestyle modification strategies discussed (elicit support from others; identify saboteurs; non-food rewards, etc). Behavioral treatment: stress management. Diet interventions: moderate (500 kCal/d) deficit diet. Informal exercise measures discussed, e.g. taking stairs instead of elevator. Regular aerobic exercise program discussed. Thyroid disorder 01/12/2014 06/07/2021 Lung mass 06/11/2011 06/08/2021 Encounters Date Type Department Care Team Description 10/05/2024 10:01 AM OTHER SPORTS OFFICIAL - 10/05/2024 12:02 PM [facility] Emergency [facility] Emergency Room [address] [place] [address] Martin Hernandez MD Knee Pain Discharge Disposition: Home or Self Care (Routine Discharge) 10/05/2024 Travel from Last 3 Months Immunizations Name Administration Dates Next Due COVID-19 Vaccine (Generic) 06/03/2021(Deferred: Patient Refused) Hepatitis A (Generic) 10/15/1999 Hepatitis A (Havrix 1440 El.U) 10/15/1999 Influenza Adult (Generic) 06/03/2021(Def erred: Patient Refused),05/22/2015 Tdap (Adacel) 10/15/2023 Family History Medical History Relation Comments Diabetes Father Parkinson's Disease Father Heart Attack Maternal Grandmother COPD Mother Depression Mother Stroke Mother Relation Status Comments Father Alive Maternal Grandmother Mother Social History Tobacco Use Types Packs/Day Years Used Date Smoking Tobacco: Every Day Cigarettes 1 40 Passive Smoke Exposure: Current Smokeless Tobacco: Current Tobacco Cessation:Ready to Q uit: No; Counseling Given: Yes Comments:When love rodriguez Alcohol Use Standard Drinks/Week Comments No 0 [...] Orientation Straight 11/21/2018 9: 34 AM CDT Last Filed Vital Signs Vital Sign Reading Time Taken Comments Blood Pressure 145/101 10/05/2024 12:01 PM OTHER SPORTS OFFICIAL Pulse 88 10/05/2024 12:01 PM OTHER SPORTS OFFICIAL Temperature 36.3 C (97.4 F) 10/05/2024 12:01 PM OTHER SPORTS OFFICIAL Respiratory Rate 18 10/05/2024 12:01 PM OTHER SPORTS OFFICIAL Oxygen Saturation 98% 10/05/2024 12:01 PM OTHER SPORTS OFFICIAL Inhaled Oxygen Concentration - - Weight 83 kg (183 lb) 10/05/2024 10:05 AM OTHER SPORTS OFFICIAL Height 152.4 cm (5') 10/05/2024 10:05 AM OTHER SPORTS OFFICIAL Body Mass Index 35.74 10/05/2024 10:05 AM OTHER SPORTS OFFICIAL Plan of Treatment Health Maintenance Due Date Last Done Comments RSV Immunization or 60+ Years (1 - Risk 60-74 years 1-dose series) 2016 Annual Medicare Wellness Visit 2021 COVID-19 Vaccine ( season) 2024 Influenza Adult (#1) 2024 05/22/2015 Mammogram Screening 06/03/2024 06/03/2022 Lung Cancer Screening 06/09/2024 06/09/2023 , 08/22/2021, 07/02/2021, Additional history exists PHQ-2 (Physician [place]) 08/09/2024 10/06/2023 Colorectal Cancer Screening Colonoscopy (10 Years) 12/30/2025 12/31/2015, 12/31/2015 Pneumococcal Vaccine: 65+ Years (1 of 2 - PCV) 11/18/2028 Postponed from 1962 (Patient Refused) Zoster Vaccines (1 of 2) 11/30/2030 Pos tponed from 2006 (Patient Refused) DTaP, Tdap and Td Vaccines (2 - Td or Tdap) 10/14/2033 10/15/2023 Dexa Scan (General) Completed 12/25/2021, 12/25/2021, 01/17/2014 Hepatitis C Completed 07/26/2024, 12/31/2016 Meningococcal B Vaccine Aged Out No l onger eligible based on patient's age to complete this topic Meningococcal Vaccine Aged Out No corby aelxus eligible based on patient's age to complete this topic RSV Immunizations Under 20 Months Aged Out No longer eligible based on patient's age to complete this topic Procedures Procedure Name Priority Date/Time Associated Diagnosis Comments USV LINA DUPLEX LOW EXT MILES STAT 10/05/2024 11:21 AM OTHER SPORTS OFFICIAL HEPATITIS C ANTIBODY Routine 07/26/2024 1:51 PM OTHER SPORTS OFFICIAL Need for hepatitis C screening test RA (rheumatoid arthritis) ([facility] HHS/HCC) Lupus (systemic lupus erythematosus) ([facility] HHS/HCC) Neuropathy Fatigue Arthritis Myalgia Hypomagnesemia Screening for diabetes mellitus Impaired glucose tolerance test Vitamin D deficiency Vitamin B12 deficiency Iron deficiency anemia, unspecified Encounter for therapeutic drug monitoring CT CHEST WO LUNG NOD FLUP Routine 06/09/2023 7:53 AM CDT Pulmonary nodule MG SCREENING W RIVAS MILES DIGI Routine 06/03/2022 12:21 PM CDT Screening mammogram, encounter for BONE DENSITY/DEXA Routine 12/25/2021 11: 26 AM CDT Post-menopausal COLONOSCOPY Routine 12/31/2015 12:00 AM CDT from Last 3 Months or Most Recently Relevant to Health Maintenance Results * USV LINA DUPLEX LOW EXT MILES (10/05/2024 11:21 AM OTHER SPORTS OFFICIAL) Anatomical Region Laterality Modality Extremity Ultrasound 10/05/2024 11:2 4 AM OTHER SPORTS OFFICIAL Impressions 10/05/2024 11:26 AM OTHER SPORTS OFFICIAL ===== IMPRESSION: ===== No evidence of DVT in the bilateral lower extremities. Ordered By: MARTIN HERNANDEZ Interpreted By: Caden Johnson MD, 10/05/2024 11:24 AM Narrative 10/05/2024 11:26 AM OTHER SPORTS OFFICIAL [place] [id number] [facility] [place] [address] Examination: Lower extremity doppler ultrasound Exam Date/Time: 10/05/2024 10:43 AM Reason For Exam: Pain in lower extremity Comparison: None Technique: Transcutaneous ultrasound evaluation of the bilateral lower extremity venous vasculature was performed for analysis of grayscale and color Doppler imaging characteristics. Findings: The bilateral lower extremity common femoral, greater saphenous, superficial femoral, popliteal, posterior tibial, and peroneal veins are all identified and demonstrate normal compressibility as well as augmentation of flow and phasicity on Doppler imaging. Scan quality is fair. Procedure Note Caden Johnson MD - 10/05/2024 [facility] [address] [place] [address] Examination: Lower extremity doppler ultrasound Exam Date/Time: 10/05/2024 10:43 AM Reason For Exam: Pain in lower extremity Comparison: None Technique: Transcutaneous ultrasound evaluation of the bilateral lowerextremity venous vasculature was performed for analysis of grayscale andcolor Doppler imaging characteristics. Findings: The bilateral lower extremity common femoral, greatersaphenous, superficial femoral, popliteal, posterior tibial, and peronealveins are all identified and demonstrate normal compressibility as well asaugmentation of flow and phasicity on Doppler imaging. Scan quality is fair. ===== IMPRESSION: ===== No evidence of DVT in the bilateral lower extremities. Ordered By: MARTIN HERNANDEZ Interpreted By: Caden Johnson MD, 10/05/2024 11:24 AM Martin Hernandez MD [facility] Final Result * HEPATITIS C ANTIBODY (07/26/2024 1:51 PM OTHER SPORTS OFFICIAL) HEPATITIS C AB NON-REACTI VE NON-REACTI VE 07/26/2024 8:47 PM OTHER SPORTS OFFICIAL [facility] 07/26/2024 1:51 PM OTHER SPORTS OFFICIAL Jose Resendiz MD LABORATORY Final Result [facility] [address] [place] [address], * CT CHEST WO LUNG NOD FLUP (06/09/2023 7:53 AM CDT) Anatomical Region Laterality Modality Chest Computed Tomogra phy 06/15/2023 11:2 7 AM OTHER SPORTS OFFICIAL Impressions 06/15/2023 12:14 PM OTHER SPORTS OFFICIAL IMPRESSION: 1. Stable multiple bilateral pulmonary nodules since 12/27/2020. No further workup necessary. Considered benign. 2. No pulmonary nodules. Postsurgical changes detailed above. 3. Stable nonpathologic sized mediastinal lymph nodes. Ordered By: MARIA ELENA ROBERTSON Interpreted By: Nancie Johnson, 06/15/2023 11:27 AM Narrative 06/15/2023 12:14 PM OTHER SPORTS OFFICIAL IMAGING STUDIES: CT CHEST WO LUNG NOD FLUP DATE: 06/09/2023 7:43 AM COMPARISON STUDIES: 07/02/2021. 12/27/2020. CLINICAL HISTORY: Lung nodules, multiple . Follow-up. Radiation dose reduction technique was utilized. FINDINGS: 1. No infiltrate or effusion. No pneumothorax. Stable postsurgical change in the right lung base with adjacent sutures and scar formation. Stable mild scattered interstitial fibrosis. Stable scattered bleb formation. 2. Multiple bilateral pulmonary nodules are stable since 12/27/2020. Greater than 2 years of stability. Considered benign. No pulmonary nodules. No further workup needed. 3. Right-sided nodules on series #3 located images 35, 51, 52, 53, 64, 71, 76 and 80. On the left side the nodules are located on images 55, 68, 72, 73, and 91. 4. Atherosclerotic aorta without dilatation. No pericardial effusion. Stable nonpathologic sized mediastinal lymph nodes. 5. Upper abdomen with normal adrenals. Fatty liver. Cholecystectomy. Degenerative change in thoracic spine. Procedure Note Sagar Johnson MD - 06/15/2023 IMAGING STUDIES: CT CHEST WO LUNG NOD FLUP DATE: 06/09/2023 7:43 AM COMPARISON STUDIES: 07/02/2021. 12/27/2020. CLINICAL HISTORY: Lung nodules, multiple . Follow-up. Radiation dosereduction technique was utilized. FINDINGS: 1. No infiltrate or effusion. No pneumothorax. Stable postsurgical changein the right lung base with adjacent sutures and scar formation. Stablemild scattered interstitial fibrosis. Stable scattered bleb formation. 2. Multiple bilateral pulmonary nodules are stable since 12/27/2020.Greater than 2 years of stability. Considered benign. No pulmonarynodules. No further workup needed. 3. Right-sided nodules on series #3 located images 35, 51, 52, 53, 64,71, 76 and 80. On the left side the nodules are located on images 55, 68,72, 73, and 91. 4. Atherosclerotic aorta without dilatation. No pericardial effusion.Stable nonpathologic sized mediastinal lymph nodes. 5. Upper abdomen with normal adrenals. Fatty liver. Cholecystectomy.Degenerative change in thoracic spine. IMPRESSION: 1. Stable multiple bilateral pulmonary nodules since 12/27/2020. Nofurther workup necessary. Considered benign. 2. No pulmonary nodules. Postsurgical changes detailed above. 3. Stable nonpathologic sized mediastinal lymph nodes. Ordered By: MARIA ELENA ROBERTSON Interpreted By: Nancie Johnson, 06/15/2023 11:27 AM Maria Elena Robertson MD CT Final Result * MG SCREENING W RIVAS MILES DIGI (06/03/2022 12:21 PM CDT) Anatomical Region Laterality Modality Breast Bilateral Mammography 06/09/2022 9:22 AM CDT Impressions 06/09/2022 9:24 AM CDT ===== IMPRESSION: ===== 1. Stable mammographic appearance with no new findings to suggest malignancy in either breast. Assessment: ACR BI-RADS 2 - BENIGN FINDING(S) Recommendation: 1:Routine Screening Bilateral Comments: Ordered By: MARIA ELENA ROBERTSON Interpreted By: John Izaguirre MD, 06/09/2022 9:22 AM Narrative 06/09/2022 9:24 AM CDT Examination: Digital bilateral screening mammogram with 3D Tomosynthesis Exam Date/Time: 06/03/2022 10:37 AM Reason For Exam: screening No personal or first-degree relative history of breast cancer. No prior breast procedures. No current complaints. Comparison: Mammograms from 02/07/2016 Technique: Digital screening mammography of both breasts was performed in addition to 3-D Tomosynthesis technique. This study was read with the assistance of a computer-aided detection system. Tissue density: There are scattered areas of fibroglandular density. Findings: Mole marker on the right. Benign axillary lymph nodes. Small masses in the left breast are stable from comparison exam. Overall parenchymal pattern unchanged from the comparison. There is no new focal asymmetry, dominant mass lesion, area of skin thickening, or cluster of suspicious appearing calcifications in either breast to suggest malignancy. us Maria Elena Robertson MD MAMMO Final Result * BONE DENSITY/DEXA (12/25/2021 11:26 AM CDT) Anatomical Region Laterality Modality Bone Bone Density 12/25/2021 11:2 0 AM CDT Impressions 12/25/2021 11:22 AM CDT IMPRESSION: 1. No evidence of osteopenia or osteoporosis. 2. Overall similar appearance to 01/17/2014. Ordered By: WALLY JEFFERY Interpreted By: Apple García, 12/25/2021 11:20 AM Narrative 12/25/2021 11:22 AM CDT BONE DENSITY/DEXA EXAM DATE/TIME: 12/25/2021 10:43 AM CLINICAL HISTORY: 66-year-old asymptomatic female. COMPARISON: 01/17/2014 FINDINGS: L2-L4: Bone mineral density 0.99 g/sq cm. Prior study 0.99 T score -0.8. Prior study -0.7. Z score 1.1. Prior study 0.5. Normal young adult female range. Very low fracture risk.. Left femoral neck: Bone mineral density 0.81 g/sq cm. Prior study 0.88 T score -0.3. Prior study 0.3. Z score 1.2. Prior study 1.4. Normal young adult female range. Very low fracture risk. Procedure Note Erwin García MD - 12/25/2021 BONE DENSITY/DEXA EXAM DATE/TIME: 12/25/2021 10:43 AM CLINICAL HISTORY: 66-year-old asymptomatic female. COMPARISON: 01/17/2014 FINDINGS: L2-L4: Bone mineral density 0.99 g/sq cm. Prior study 0.99 T score -0.8. Prior study -0.7. Z score 1.1. Prior study 0.5. Normal young adult female range. Very low fracture risk.. Left femoral neck: Bone mineral density 0.81 g/sq cm. Prior study 0.88 T score -0.3. Prior study 0.3. Z score 1.2. Prior study 1.4. Normal young adult female range. Very low fracture risk. IMPRESSION: 1. No evidence of osteopenia or osteoporosis. 2. Overall similar appearance to 01/17/2014. Ordered By: WALLY JEFFERY Interpreted By: Apple García, 12/25/2021 11:20 AM us Wally RICHARDSON Final Result * Colonoscopy (12/31/2015 12:00 AM CDT) 12/31/2015 12/31/2015 Narrative [facility] TO EPIC CONVERSION - 12/31/2015 12:00 AM CDT Documented hx of procedure Procedure Note Qian Ambrocio MD - 06/12/2018 Documented hx of procedure us Generic Conversion Md AMBROCIO GI PROCEDURE ORDERABLES Final Result [facility] TO EPIC CONVERSION from Last 3 Months or Most Recently Relevant to Health Maintenance Insurance [place] [address] [place] [address] MEDICAID Care Teams Student Assistant Relationship Specialty Start Date End Date Kenneth Aguilar DO [address] [place] [address] PCP - General FAMILY PRACTICE 07/26/24
--- OUTSIDE RECORDS SUMMARY | 2024-10-27 14:30 | XMS_ITS | Encounter Summary ---
Author Organization [facility] Address [address] [place] [id number] Care Team Providers Care Market Reporter Name Role Phone Maria Elena Robertson MD Primary Care Provider [phone] Aminta Morales NP Primary Care Provider [phone] Maria Elena Robertson MD Primary Care Provider [phone] Aminta Morales SAUSAGE MACHINE OPERATOR Primary Care Provider [phone] Kenneth Aguilar DO Primary Care Provider [phone] Encounter Details Date Type Department Care Team (Late st Contact Info) Description 07/20/2022 [employer] Message Enc [facility] Family & Internal Medicine [facility] [id number] [place] [phone] Maria Elena Robertson [place] [id number] [place] [address]. [address] [place] [address] Cancel today's appointment Social History Tobacco Use Types Packs/Day Years [...] as of this encounter Progress Notes * April Villafana RN - 07/20/2022 9:02 AM CST FYI - see patient note about phones ET GARDENER documented in this encounter Plan of Treatment Not on file documented as of this encounter Visit Diagnoses Not on filedocumented in this encounter Additional Health Concerns Assessment Noted Time PHQ-9 Depression Total Score: 15 021 9:17 AM CDT documented as of this encounter Care Teams Market Reporter Relationship Specialty Start [place] [address] [place] [address] PCP - General FAMILY PRACTICE 02/27/22 02/17/23 Aminta Morales NP [address] [place] [address] PCP - General NURSE PRACTITIONER 02/18/23 02/23/23 [place] [address] [place] [address] PCP - General FAMILY PRACTICE 02/24/23 06/23/23 Aminta Morales NP [address] [place] [address] PCP - General NURSE PRACTITIONER 06/24/23 05/22/24 Kenneth Aguilar DO [address] [place] [address] PCP - General FAMILY PRACTICE 07/26/24 documented as of this encounter
--- OUTSIDE RECORDS SUMMARY | 2024-10-27 14:30 | XMS_ITS | Encounter Summary ---
Author Organization [facility] Address [address] [place] [address] Care Team Providers Care Pile Operator Name Role Phone Aminta Morales NP Primary Care Provider [phone] Kenneth Aguilar DO Primary Care Provider Encounter Details Date Type Department Care Team (Late st Contact Info) Description 08/19/2023 InSite Vision Message Enc [facility] Medical Group Family Medicine - [place] [address] [facility] [address] [place] [address] [id number] Aminta Morales, RACHEL [address] [place] [address] HAPPY BIRTHDAY! Social History Tobacco Use Types Packs/Day Years [...] documented as of this encounter Care Teams Pile Operator Relationship Specialty Start Date End Date Aminta Morales NP [address] [place] [address] PCP - General NURSE PRACTITIONER 06/24/23 05/22/24 Kenneth Aguilar DO [address] [place] [address] PCP - General FAMILY PRACTICE 07/26/24 documented as of this encounter
--- OUTSIDE RECORDS SUMMARY | 2024-10-27 14:30 | XMS_ITS | Encounter Summary ---
Author Organization [facility] Address [address] [place] [address] Care Team Providers Care Distribution Center Administrator Name Role Phone Maria Elena Robertson MD Primary Care Provider [phone] Aminta Morales NP Primary Care Provider [phone] Kenneth Aguilar DO Primary Care Provider [phone] Encounter Details Date Type Department Care Team (Late st Contact Info) Description 06/16/2023 Parrut Message Enc [facility] Medical [facility] Family & Internal Medicine [facility] [id number] [place] [phone] [place] [address] [facility] [place] [address] Referral Social History Tobacco Use Types Packs/Day [...] documented as of this encounter Care Teams Distribution Center Administrator Relationship Specialty [place] [address] [place] [address] PCP - General FAMILY PRACTICE 02/24/23 06/23/23 Aminta Morales NP [address] [place] [address] PCP - General NURSE PRACTITIONER 06/24/23 05/22/24 Kenneth Aguilar DO [address] [place] [address] PCP - General FAMILY PRACTICE 07/26/24 documented as of this encounter
--- OUTSIDE RECORDS SUMMARY | 2024-10-27 14:30 | XMS_ITS | Encounter Summary ---
Author Organization [facility] Address [address] [place] [address] Care Team Providers Care Director Federal Name Role Phone Maria Elena Robertson MD Primary Care Provider [phone] Aminta Morales NP Primary Care Provider [phone] Maria Elena Robertson MD Primary Care Provider [phone] Aminta Morales BRICK WHEELER Primary Care Provider [phone] Kenneth Aguilar DO Primary Care Provider [phone] Encounter Details Date Type Department Care Team (Late st Contact Info) Description 06/26/2022 [place] Message Enc [facility] Medical Group Family & Internal Medicine [facility] [address] [place] [phone] Maria Elena Robertson [place] [id number] [place] [address]. [address] [place] [address] Gum infection Social History Tobacco Use Types Packs/Day Years [...] suspected to have Coronavirus/COVID-19? No / Unsure 06/10/2022 8:41 AM CDT documented as of this encounter Plan of Treatment Not on file documented as of this encounter Visit Diagnoses Not on filedocumented in this encounter Additional Health Concerns Assessment Noted Time PHQ-9 Depression Total Score: 15 021 9:17 AM CDT documented as of this encounter Care Teams Director Federal Relationship Specialty [place] [address] [place] [address] PCP - General FAMILY PRACTICE 02/27/22 02/17/23 Aminta Morales NP [address] [place] [address] PCP - General NURSE PRACTITIONER 02/18/23 02/23/23 [place] [address] [address] [place] [address] PCP - General FAMILY PRACTICE 02/24/23 06/23/23 Aminta Morales NP [address] [place] [address] PCP - General NURSE PRACTITIONER 06/24/23 05/22/24 Kenneth Aguilar DO [address] [place] [address] PCP - General FAMILY PRACTICE 07/26/24 documented as of this encounter
--- OUTSIDE RECORDS SUMMARY | 2024-10-27 14:30 | XMS_ITS | Encounter Summary ---
Author Organization [facility] Address [address] [place] [address] Care Team Providers Care Baggage Inspector Name Role Phone Maria Elena Robertson MD Primary Care Provider [phone] Aminta Morales NP Primary Care Provider [phone] Maria Elena Robertson MD Primary Care Provider [phone] Aminta Morales FRONT OFFICE ATTENDANT Primary Care Provider [phone] Kenneth Aguilar DO Primary Care Provider [phone] Encounter Details Date Type Department Care Team (Late st Contact Info) Description 02/03/2023 MyChart Message Enc [facility] Medical Group - [facility] [address] [place] [address] [facility] Air Quality Message Social History Tobacco Use Types Packs/Day Years [...] suspected to have Coronavirus/COVID-19? No / Unsure 01/20/2023 9:05 AM CDT documented as of this encounter Plan of Treatment Not on file documented as of this encounter Visit Diagnoses Not on filedocumented in this encounter Additional Health Concerns Assessment Noted Time PHQ-9 Depression Total Score: 4 01/27/20 8:37 AM CDT documented as of this encounter Care Teams Baggage Inspector Relationship Specialty Start [place] [address] [place] [address] PCP - General FAMILY PRACTICE 02/27/22 02/17/23 Aminta Morales NP [address] [place] [address] PCP - General NURSE PRACTITIONER 02/18/23 02/23/23 [place] [address] [address] [place] [address] PCP - General FAMILY PRACTICE 02/24/23 06/23/23 Aminta Morales NP [address] [place] [address] PCP - General NURSE PRACTITIONER 06/24/23 05/22/24 Kenneth Aguilar DO [address] [place] [address] PCP - General FAMILY PRACTICE 07/26/24 documented as of this encounter
--- OUTSIDE RECORDS SUMMARY | 2024-10-27 14:30 | XMS_ITS | Clinical Summary ---
Author Organization [facility] [address] [place] [address] Care Team Providers Care Rivet Hole Machine Operator Name Role Phone Omar Santa MD Primary Care Provider [phone] Allergies Active Allergy Reactions Criticality Noted Date Comments Adhesive Rash Medium 01/10/2018 Adhesive Tape-Silicones Clindamycin Shortness of breath High Reaction: Breathing problems, , Ketoconazole Rash Medium 01/11/2012 Rash Penicillin G Rash Medium 01/11/2012 Rash Penicillins Medications albuterol HFA (VENTOLIN HFA) 90 mcg/actuation inhaler inhale 2 puff by inhalation route every 4 - 6 hours as needed 0 2 Active fluticasone furoate-vilante roL (BREO ELLIPTA) 100-25 mcg/dose diskus inhaler Inhale 1 puff daily Rinse mouth with water after use. Do not swallow. Active traZODone (DESYREL) 50 mg tablet Take 1 tablet (50 mg total) by mouth nightly 90 tablet 3 2 Active melatonin tablet Take by mouth Active donepeziL (ARICEPT) 10 mg tablet Take 1 tablet (10 mg total) by mouth nightly 90 tablet [address] (PROTONIX) 40 mg EC tablet Take 1 tablet (40 mg total) by mouth daily 30 tablet 5 2 Active zolpidem (AMBIEN) 5 mg tabletIndicatio ns:Sleep-Onset Insomnia Take 1 tablet (5 mg total) by mouth nightly as needed for sleep 10 tablet [address] (CYMBALTA) 60 mg capsule Take 1 capsule by mouth once daily 30 capsule 2 Active furosemide (LASIX) 20 mg tablet Take 1 tablet by mouth once daily 90 tablet 3 Active Synthroid 88 mcg tablet TAKE 1 TABLET BY MOUTH IN THE MORNING BEFORE BREAKFAST 90 tablet 3 Active Active Problems Problem Noted Date Diagnosed Date Mood disorder 10/17/2021 Gastroesophageal reflux disease 10/17/2021 Pneumonia due to infectious organism 07/10/2021 Chronic fatigue 07/21/2019 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 Had multiple questions and concerns today discussed and cleared all pt. Questions and concerns Total visit time 25 min , greater than 50 % of the visit time spent in answering pt all questions and concerns. Advised to c/w current Rembrandt thyroid 90 mg oral - take 6 days weekly, skip taking Wednesday Recheck TFT in 2 months Follow up in 6 months Desiccated animal thyroid (Rembrandt ), now mainly obtained from pigs, was [...] advantage over synthetic T4. Assessment & Plan (07/12/2017 10:50 AM OSTEOLOGY TEACHER): Reviewed recent thyroid labs with pt. TSH - 61.2, low free T 4 - overt hypothyroidism - pt. Currently off all thyroid medication, except a thyroid diet supplement - pt. Wants to try Rembrandt thyroid - she understands the risks , SE and benefits - start pt. 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 Assessment & Plan (04/05/2017 10:57 PM CDT): - pt. Off her Levothyroxine supplementation for 2 months now - clinically pt. Looks euthyroid - will recheck TFT , further plans and recommendations based on the repeat labs - follow up in 3 months Assessment & Plan (02/22/2017 9:35 PM CDT): Advised that dose of Levothyroxine just needs to be adjusted , but stopping completely may make symptoms more worse. - But pt. Would try to some natural therapy and willing to recheck levels in 4-6 weeks, and if labs look abnormal and based on her symptoms , pt. Willing to go back on treatment - recheck TFT in 4 week - follow up in 6 weeks Non morbid obesity due to excess calories 2016 Assessment & Plan (11/01/2017 8:41 PM CDT): Obesity is improving with treatment.( improving after [...] of elevator. Regular aerobic exercise program discussed. Assessment & Plan (07/12/2017 10:50 AM OSTEOLOGY TEACHER): Obesity is improving with lifestyle modifications. Discussed the patient's BMI. The BMI is above average; BMI management plan is completed. General weight loss/lifestyle modification strategies discussed (elicit support from others; identify saboteurs; non-food rewards, etc). Behavioral treatment: stress management. Diet interventions: moderate (500 kCal/d) deficit diet. Informal exercise measures discussed, e.g. taking stairs instead of elevator. Regular aerobic exercise program discussed. Advised to work on resistance training exercises Also advised to take thyroid medications Assessment & Plan (04/05/2017 10:55 PM CDT): Obesity is improving Discussed the patient's BMI. The BMI is above average; BMI management plan is completed. General weight loss/lifestyle modification strategies discussed (elicit support from others; identify saboteurs; non-food rewards, etc). Behavioral treatment: stress management. Diet interventions: moderate (500 kCal/d) deficit diet. Informal exercise measures discussed, e.g. taking stairs instead of elevator. Regular aerobic exercise program discussed. Assessment & Plan (02/22/2017 9:35 PM CDT): Obesity is unchanged. Discussed the patient's BMI. The BMI is above average; BMI management plan is completed. General weight loss/lifestyle modification strategies discussed (elicit support from others; identify saboteurs; non-food rewards, etc). Behavioral treatment: stress management. Diet interventions: moderate (500 kCal/d) deficit diet. Informal exercise measures discussed, e.g. taking stairs instead of elevator. Regular aerobic exercise program discussed. BMI 39.0-39.9,adult 02/22/2017 Tobacco abuse 02/22/2017 Assessment & Plan (04/05/2017 10:56 PM CDT): Strongly advised to quit smoking Assessment & Plan (02/22/2017 9:36 PM CDT): Strongly advised to cut back and quit smoking Disorder of lung 04/25/2014 Coughing up blood 06/12/2011 Pulmonary nodules 06/11/2011 Lymphadenopathy 06/11/2011 Resolved Problems Problem Noted Date Diagnosed Date Resolved Date Severe obesity (BMI 35.0-39. 9) with comorbidity 08/05/2021 10/17/2021 Overview (08/05/2021): Reviewed helathy food choices and goal of 150min/week aeorbic exericse. Immunizations Immunization Administration Dates Next Due Hep A, Adult 10/15/1999 Hep A, Unspecified 10/15/1999 Influenza, Quadrivalent, Spl it, Preservative Free, Intramuscular 05/22/2015 Influenza, Unspecified 10/16/2021(Deferr ed: Patient Refused),08/09/2021(Deferred: Patient Refused),08/09/2021(Deferred: Patient Refused),04/09/2021(Deferred: Patient Refused),08/09/2020(Deferred: Patient Refused),08/09/2020(Deferred: Patient Refused) Surgical History Surgery Date Site/Laterality Comments TOTAL ABDOMINAL HYSTERECTOMY Hysterectomy, total HERNIA REPAIR Hernia repair SECTION HEEL SPUR SURGERY HAND SURGERY Left right and left CHOLECYSTECTOMY LUNG REMOVAL, PARTIAL lower lobe Medical History Medical History Date Comments Hx Other Medical hypo thyroid Chronic obstructive pulmonary disease (HCC) COPD Hx Other Medical histoplasmosis Lung Surgery Depression Hyperthyroidism Asthma Emphysema of lung (HCC) COPD (chronic obstructive pulmonary disease) (HC C) Family History Medical History Relation Name Comments Cancer Brother Diabetes type II Brother Diabetes me llitus type 2; Diabetes type II Father Diabetes me llitus type 2; Hypertension Father Hypertension; Heart disease Maternal Grandmother Cervical cancer Mother Cancer, cerv ical; Diabetes type II Mother Diabetes me llitus type 2; Hypertension Mother Hypertension; Stroke Mother Stroke; Thyroid disease Mother stroke Mother Cancer Mother's Brother Cancer Mother's Sister Lupus Niece Hypertension Sister Thyroid disease Sister Relation Name Status Comments Brother Father Maternal Grandmother Mother Mother's Brother Mother's Sister Niece Sister Social History Tobacco Use Types Packs/Day Years Used Date Smoking Tobacco: Every Day Cigarettes Smokeless Tobacco: Never Comments:Patient quit 2020 Alcohol Use Standard Drinks/Week Comments Yes 0 (1 standard drink = 0.6 oz pur e alcohol) PHQ-2 Answer Date Recorded PHQ-2 Total Score (If total score is 3 or more points, staff should administer the PHQ-9) 0 12/09/2021 Personal Safety Answer Date Recorded Getting School Help Needed Not on file 08/14 Comments Unknown Sex and Gender Information Value Date Recorded Sex Assigned at Not on file Legal Sex Female 11:59 PM OSTEOLOGY TEACHER Gender Identity Not on file Sexual Orientation Not on file Obstetrics History Last Filed Vital Signs Vital Sign Reading Time Taken Comments Blood Pressure 124/76 12/09/2021 8:48 AM CDT Pulse 76 12/09/2021 8:48 AM CDT Temperature 36.8 C (98.3 F) 12/09/2021 8:48 AM CDT Respiratory Rate 18 10/16/2021 9:23 AM OSTEOLOGY TEACHER Oxygen Saturation 98% 12/09/2021 8:48 AM CDT Inhaled Oxygen Concentration - - Weight 95.4 kg (210 lb 6.4 oz) 12/09/2021 8:48 A M CDT Height 152.4 cm (5') 12/09/2021 8:48 AM CDT Body Mass Index 41.09 12/09/2021 8:48 AM CDT Plan of Treatment Health Maintenance Due Date Last Done Comments Breast Cancer Screening-Mammogram 1955 Hepatitis C Screening 1955 DTaP/Tdap/Td Vaccine (1 - Tdap) 1967 Hepatitis B Screening 1974 Pneumococcal vaccine 65+ (1 of 2 - PCV) 1975 Zoster Vaccine (1 of 2) 2006 Well Visit 65+ 2021 Colon Cancer Screening-Colonoscopy 03/24/2022 03/24/2012 Depression Screening 12/09/2022 12/09/2021, 10/16/2021, 08/05/2021, Additional history exists Fall Risk Assessment 12/09/2022 12/09/2021, 10/16/2021, 08/05/2021 Osteoporosis Screening-Bone Density Scan 12/26/2023 12/25/2021, 12/25/2021 Influenza Vaccine (#1) 2024 05/22/2015 Colon Cancer Screening-CT Colonography Discontinued 03/24/2012 Colon Cancer Screening-DNA Stool Discontinued 03/24/20 Colon Cancer Screening-FIT Discontinued 03/24/2012 Colon Cancer Screening-Sigmoidoscopy Discontinued 03/24/2012 Procedures Procedure Name Priority Date/Time Associated Diagnosis Comments DEXA AXIAL SKELETON BONE DENSITY 1 OR MORE SITES Schedule Routine, Read Routine (OP Routine) 12/25/2021 Asymptomatic menopausal state COLONOSCOPY 03/24/2012 12:00 AM CDT from Last 3 Months or Most Recently Relevant to Health Maintenance Results * Dexa Axial Skeleton Bone Density 1 Or 2 Site (12/25/2021) Anatomical Region Laterality Modality Body N/A Radiographic Sharon ging us Omar Santa MD IMG DXA PROCEDURES Final Result * COLONOSCOPY (03/24/2012 12:00 AM CDT) Anatomical Region Laterality Modality Other Narrative 03/24/2012 12:00 AM CDT Ordered by an unspecified provider. Procedure Note ProviderDiana MD - 03/24/2012 12:00 AM CDT PROCEDURE REPORT Patient: ANNETTE SHABAZZ Account: [id number] Room No: : 1955 Patient Type: [facility] Attend.: Santiago Quinn M.D. Admit Date: 03/24/2012 Dict.: Santiago Quinn M.D. Disch. Date:03/24/2012 NAME OF PROCEDURE: Colonoscopy. HISTORY: This is a 56-year-old female with abdominal pain, dysphagia, heartburn, as well as need for screening colonoscopy. PHYSICAL EXAMINATION: GENERAL: Obese female. LUNGS: Clear. CARDIOVASCULAR: Unremarkable. PROCEDURE: Colonoscopy was performed with a NuScale Power video endoscope.On digital exam, no abnormalities were palpable. We inserted the endoscopeand advanced it to the cecum. The colon was adequately prepped andvisualized. We could find no evidence of inflammation or neoplasia anywhere through thelength of the bowel. The patient tolerated the procedure without difficulty. POSTOPERATIVE DIAGNOSIS: Normal colonoscopy. Santiago Quinn M.D. /tlt TD: 03/25/2012 08:36 Authenticated by Santiago Quinn MD On 03/25/2012 08:57:25 AM us Historical Provider ENDOSCOPY PROCEDURES Shazia l Result from Last 3 Months or Most Recently Relevant to Health Maintenance Insurance [facility] MEDICARE ADVANTAGE [facility] Address: [address] [address] [place] [address] [facility] MEDICARE ADVANT[address] [facility] MEDICARE ADVANTAGE Member Subscriber Plan / Payer (Ef fective 2016-Present) Name:ANNETTE DUMONT Relation to Subscriber:Self Name:Annette Dumont Payer ID:[id number] ([facility]) Type:UHC MEDICARE Address: [address] [id number] [facility] MEDICARE ADVANTAGE [facility] Address: [address] [address] [place] [address] Care Teams Rivet Hole Machine Operator Relationship Specialty Start Date End Date Omar Santa MD [address] [place] [address] PCP - General Family Medicine 08/05/21
--- OUTSIDE RECORDS SUMMARY | 2024-10-27 14:30 | XMS_ITS | Encounter Summary ---
Author Organization [facility] Address [address] [place] [address] Care Team Providers Care Mobile Application Development Lead Name Role Phone Maria Elena Robertson MD Primary Care Provider [phone] Aminta Morales NP Primary Care Provider [phone] Kenneth Aguilar DO Primary Care Provider [phone] Encounter Details Date Type Department Care Team (Late st Contact Info) Description 04/01/2023 RingMD Message Enc [facility] Family & Internal Medicine [facility] [address] [place] [phone] [place] [address] [facility] [place] [address] Albuterol Social History Tobacco Use Types Packs/Day Years [...] documented as of this encounter Care Teams Mobile Application Development Lead Relationship Specialty Start [place] [address] [address] [place] [address] PCP - General FAMILY PRACTICE 02/24/23 06/23/23 Aminta Morales NP [address] [place] [address] PCP - General NURSE PRACTITIONER 06/24/23 05/22/24 Kenneth Aguilar DO [address] [place] [address] PCP - General FAMILY PRACTICE 07/26/24 documented as of this encounter
--- OUTSIDE RECORDS SUMMARY | 2024-10-27 14:30 | XMS_ITS | Clinical Summary ---
Author Organization [facility] Address [address] [place] [address] Care Team Providers Care Parking Inspector Name Role Phone Kenneth Aguilar Primary Care Provider [phone] Source Comments [facility],non-owned Affiliates and Associated Physician Practices is amultiple site organization consisting of ambulatory clinics and hospital sitesin [place], [place], [place] and [place]. This disclosure is being madepursuant to the Care Everywhere program and may not contain all information available regarding this patient. Last updated 18.[facility] Allergies Active Allergy Reactions Criticality Noted Date Comments Clindamycin Shortness of Breath High 01/06/2024 Medications * Be aware that medications may not be up to date on this document. Alwaysverify current medications with the patient. Medication Sig Dispensed Refills Start Date End Date Status Vitamin D 12.5 MCG/0.25ML LIQD Active albuterol HFA (Proventil; Ventolin; Proair) 108 (90 Base) MCG/ACT inhaler INHALE 2 PUFFS BY MOUTH EVERY 6 HOURS NEEDED FOR SHORTNESS OF BREATH 04/01/2023 Active b complex-c capsule Take 1 (one) capsule by mouth once daily Active Trelegy Ellipta 200-62.5-25 MCG/ACT inhaler INHALE 1 PUFF ONCE DAILY 11/16/2023 Active Synthroid 100 MCG tablet Take 1 (one) tablet by mouth every morning 09/22/2023 Active pantoprazole EC (Protonix) 40 MG tablet Take 1 (one) tablet by mouth once daily 09/06/2023 Active venlafaxine XR 24hr (Effexor XR) 75 MG capsule 11/18/2023 Active nicotine (Nicoderm CQ) 21 MG/24HR patchIndications:Tob acco use disorder Apply 1 (one) patch to skin once daily 30 patch 6 01/06/2024 Active Social History Tobacco Use Types Packs/Day Years Used Date Smoking Tobacco: Every Day Cigarettes 1 40 Tobacco Cessation:Ready to Q uit: Not Asked; Counseling Given: Not Answered Comments:Smokes a pack per day Sex and Gender Information Value Date Recorded Sex Assigned at Not on file Gender Identity Not on file Sexual Orientation Not on file Last Filed Vital Signs Vital Sign Reading Time Taken Comments Blood Pressure 102/62 01/06/2024 11:08 AM CDT Pulse 73 01/06/2024 11:08 AM CDT Temperature 36.9 C (98.4 F) 01/06/2024 11:08 AM CDT Respiratory Rate 17 01/06/2024 11:08 AM CDT Oxygen Saturation 98% 01/06/2024 11:08 AM CDT Inhaled Oxygen Concentration - - Weight 95.5 kg (210 lb 9.6 oz) 01/06/2024 11:08 AM CDT Height 152.4 cm (5') 01/06/2024 11:08 AM CDT Body Mass Index 41.13 01/06/2024 11:08 AM CDT Plan of Treatment Upcoming Encounters Date Type Department Care Team (Late st Contact Info) Description 05/01/2025 2:00 PM CDT Office Visit [facility] - Rheumatology [address] [place] [address], [place] [id number] Lauren Zelaya MD [address] [place] [address] [place] [address] Health Maintenance Due Date Last Done Comments COLOGUARD (AGES 45-75) - COL ON CA SCREENING 1956 COLON MONITORING 1956 COLONOSCOPY - COLON CA SCREENING 1956 CT COLONOGRAPHY - COLON CA SCREENING 1956 Colorectal Cancer Screening 1956 FIT - COLON CA SCREENING 1956 FLEX SIG - COLON CA SCREENING 1956 LIPID TESTING 1956 DTAP/TDAP/TD VACCINES (1 - Tdap) 1975 PNEUMOCOCCAL VACCINE 50+ (1 of 2 - PCV) 1975 LUNG CANCER SCREENING 2006 ZOSTER VACCINE (1 of 2) 2006 Respiratory Syncytial Virus (RSV) Vaccine Pt: or over 60 yrs (1 - Risk 60-74 years 1-dose series) 2016 SCREENING FOR DIABETES 11/22/2023 12/31/2016 COVID-19 VACCINE (1 - 2023-2 5 season) 2024 INFLUENZA VACCINE (#1) 2024 05/22/2015 MAMMOGRAM 06/03/2024 06/03/2022 DEPRESSION SCREENING 08/09/2024 MEDICARE AWV CALENDAR YEAR 2024 HEPATITIS C SCREENING Completed 12/31/2016 BONE DENSITY TESTING Completed 12/25/2021, 12/25/2021, 01/17/2014 HEPATITIS B VACCINE Aged Out No longe r eligible based on patient's age to complete this topic HIB VACCINE Aged Out No longer eligi ble based on patient's age to complete this topic HPV VACCINE Aged Out No longer eligi ble based on patient's age to complete this topic MENINGOCOCCAL (Group B) VACCINE SHARED DECISION-MAKING Aged Out No longer eligible based on patient's age to complete this topic MENINGOCOCCAL GROUPS A/C/Y/W VACCINE Aged Out No longer eligible b ased on patient's age to complete this topic Procedures Procedure Name Priority Date/Time Associated Diagnosis Comments COMPREHENSIVE METABOLIC PANEL Routine 12/31/2016 12:17 PM CDT HEPATITIS C AB W RFLX VERIFICATION Routine 12/31/2016 12:17 PM CDT from Last 3 Months or Most Recently Relevant to Health Maintenance Results * HEPATITIS C AB W RFLX VERIFICATION (12/31/2016 12:17 PM CDT) Hepatitis C Antibody <0.1 0.0 - 0.9 s/co ratio [facility]) 12/31/2016 12:1 7 PM CDT 12/31/2016 Narrative [facility] ([facility]) - 01/06/2017 7:12 AM CDT Performed at: 01 - [address] [id number] Senior Project Architect: Paul Spears PhD, Phone: [phone] Specimen Comment: A courtesy copy of this report has been sent to Specimen Comment: [phone], . Maxwell Dean MD LAB - CHEMISTRY SHY JAMES [facility] (BEAK[facility]) * (ABNORMAL) COMPREHENSIVE METABOLIC PANEL (12/31/2016 12:17 PM CDT) Glucose 109(H) 65 - 99 mg/dL [facility] ([facility]) BUN 12 8 - 27 mg/dL [facility] ([facility]) Creatinine 0.94 0.57 - 1.00 mg/dL [facility] ([facility]) eGFR non- 66 >59 mL/min/1.7 3 [facility] ([facility]) eGFR 76 >59 mL/min/1.7 3 [facility] ([facility]) BUN/Creatinine Ratio 13 12 - 28 [facility] ([facility]) Sodium 142 134 - 144 mmol/L [facility] ([facility]) Potassium 4.5 3.5 - 5.2 mmol/L [facility] ([facility]) Chloride 101 96 - 106 mmol/L [facility] ([facility]) CO2 25 18 - 29 mmol/L [facility] ([facility]) Calcium 9.4 8.7 - 10.3 mg/dL [facility] ([facility]) Protein Total 6.8 6.0 - 8.5 g/dL [facility] ([facility]) Albumin 4.2 3.6 - 4.8 g/dL [facility] ([facility]) Globulin Total 2.6 1.5 - 4.5 g/dL [facility] ([facility]) Albumin/Globulin Ratio 1.6 1.2 - 2.2 [facility] ([facility]) Bilirubin Total 0.3 0.0 - 1.2 mg/dL [facility] ([facility]) Alkaline Phosphatase 108 39 - 117 IU/L [facility] ([facility]) AST 27 0 - 40 IU/L [facility] ([facility]) ALT 33(H) 0 - 32 IU/L [facility] ([facility]) Blood specimen (specimen) BLOOD SPECIMEN / Unknown 12/31/2016 12:17 PM CDT 12/31/2016 Narrative [facility] ([facility]) - 01/06/2017 7:12 AM CDT Route to PCP, [place], Performed at: - [facility] [address] [id number] Senior Project Architect: Paul Spears PhD, Phone: [phone] Specimen Comment: A courtesy copy of this report has been sent to Specimen Comment: [phone], . Maxwell Dean MD LAB - CHEMISTRY [facility] ([place]) from Last 3 Months or Most Recently Relevant to Health Maintenance Care Teams Parking Inspector Relationship Specialty Start Date End Date Kenneth Aguilar DO [address] [place] [phone] PCP - General Family Medicine 10/02/24
--- OUTSIDE RECORDS SUMMARY | 2024-10-27 14:30 | XMS_ITS | Encounter Summary ---
Author Organization [facility] Address [address] [place] [address] Care Team Providers Care Feed Inspection Supervisor Name Role Phone Maria Elena Robertson MD Primary Care Provider [phone] Aminta Morales NP Primary Care Provider [phone] Maria Elena Robertson MD Primary Care Provider [phone] Aminta Morales SERVICE DELIVERY DIRECTOR Primary Care Provider [phone] Kenneth Aguilar DO Primary Care Provider [phone] Encounter Details Date Type Department Care Team (Late st Contact Info) Description 09/07/2022 GIS Cloud Message Enc [facility] Family & Internal Medicine [facility] [address] [place] [address] Maria Elena Robertson [place] [address] [place] [address]. [address] [place] [address] Question regarding TSH W/REFLEX Social History Tobacco Use Types Packs/Day Years [...] suspected to have Coronavirus/COVID-19? No / Unsure 08/13/2022 8:27 AM SOLID GLASS ROD DOWEL MACHINE OPERATOR documented as of this encounter Progress Notes * Adamaris Tolbert RN - 09/16/2022 9:53 AM CST Please advise, see Sawyer' message previously. D GLASS ROD DOWEL MACHINE OPERATOR * Adamaris Tolbert RN - 09/08/2022 3:52 PM CST Her US was completed in June with no acute findings. Message left for patient to inquire about how she is taking her medication. Chloe Fox D GLASS ROD DOWEL MACHINE OPERATOR * Adamaris Tolbert RN - 09/07/2022 12:13 PM CST Please advise. D GLASS ROD DOWEL MACHINE OPERATOR documented in this encounter Plan of Treatment Not on file documented as of this encounter Visit Diagnoses Not on filedocumented in this encounter Additional Health Concerns Assessment Noted Time PHQ-9 Depression Total Score: 15 021 9:17 AM CDT documented as of this encounter Care Teams Feed Inspection Supervisor Relationship Specialty Start [place] [address] [place] [address] PCP - General FAMILY PRACTICE 02/27/22 02/17/23 Aminta Morales NP [address] [place] [address] PCP - General NURSE PRACTITIONER 02/18/23 02/23/23 [place] [address] [facility] [place] [address] PCP - General FAMILY PRACTICE 02/24/23 06/23/23 Aminta Morales NP [address] [place] [address] PCP - General NURSE PRACTITIONER 06/24/23 05/22/24 Kenneth Aguilar DO [address] [place] [address] PCP - General FAMILY PRACTICE 07/26/24 documented as of this encounter
--- OUTSIDE RECORDS SUMMARY | 2024-10-27 14:30 | XMS_ITS | Encounter Summary ---
Author Organization [facility] Address [address] [place] [address] Care Team Providers Care Hydro Generation Manager Name Role Phone Hong Hathaway MD Unavailable Dannielle Orozco MD Primary Care Provider Unavailab le Hong Hathaway MD Unavailable [phone] Ivania Han DIRECTOR WORK Primary Care Provider Unav ailable Ivania Han DIRECTOR WORK Primary Care Provider Unav ailable Chuyita Razo [facility] Primary Care Provider + Omar Santa MD Primary Care Provider [phone] Maria Elena Robertson MD Primary Care Provider [phone] Aminta Morales DIRECTOR WORK Primary Care Provider [phone] Maria Elena Robertson MD Primary Care Provider [phone] Aminta Morales DIRECTOR WORK Primary Care Provider [phone] Kenneth Aguilar DO Primary Care Provider [phone] Encounter Details Date Type Department Care Team (Late st Contact Info) Description 04/13/2014 Abstract [facility] CONVERSION [address] [place], [place] [id number] , Generic MD Edmund Social History Tobacco Use Types Packs/Day Years Used Date Smoking Tobacco: Never Assessed Comments Unknown Sex and Gender Information Value [...] documented as of this encounter Care Teams Hydro Generation Manager Relationship Specialty Start [place] [address] [place] [address] PCP - Med Group - [facility] Attributed Provider 10/07/18 06/12/19 [place] [address] [place] [address] PCP - General INTERNAL MEDICINE 09/25/19 12/07/19 [place] [address] [place] [address] PCP - Med Group [facility] Attributed Provider 10/09/19 08/09/20 [place] [address] [place] [address] PCP - General NURSE PRACTITIONER 12/11/19 12/14/19 [place] [address] [place] [address] PCP - General NURSE PRACTITIONER 12/20/19 05/19/21 Chuyita Razo FNP- [address] [place] [address] PCP - General Nurse Practitioner Family 05/20/21 09/18/21 Omar [place] [address] PCP - General INTERNAL MEDICINE 02/17/22 02/26/22 [place] [address] [place] [address] PCP - General FAMILY PRACTICE 02/27/22 02/17/23 Aminta Morales NP [address] [place] [address] PCP - General NURSE PRACTITIONER 02/18/23 02/23/23 [place] [address] [facility] [place] [address] PCP - General FAMILY PRACTICE 02/24/23 06/23/23 Aminta Morales NP [address] [place] [address] PCP - General NURSE PRACTITIONER 06/24/23 05/22/24 Kenneth Aguilar DO [address] [place] [address] PCP - General FAMILY PRACTICE 07/26/24 documented as of this encounter
--- OUTSIDE RECORDS SUMMARY | 2024-10-27 14:30 | XMS_ITS | Encounter Summary ---
Author Organization [facility] Address [address] [place] [address] Care Team Providers Care Major Case Detective Name Role Phone Maria Elena Robertson MD Primary Care Provider [phone] Aminta Morales NP Primary Care Provider [phone] Maria Elena Robertson MD Primary Care Provider [phone] Aminta Morales YACHT HAND Primary Care Provider [phone] Kenneth Aguilar DO Primary Care Provider [phone] Encounter Details Date Type Department Care Team (Late st Contact Info) Description 09/07/2022 ownCloud Message Enc [facility] Family & Internal Medicine [facility] [address] [place] [address] Maria Elena Robertson [place] [address] [place] [address]. [address] [place] [address] Question regarding CBC W/DIFF AUTOMATED Social History Tobacco Use Types Packs/Day Years [...] Coronavirus/COVID-19? No / Unsure 08/13/2022 8:27 AM POLITICAL REPORTER documented as of this encounter Plan of Treatment Not on file documented as of this encounter Visit Diagnoses Not on filedocumented in this encounter Additional Health Concerns Assessment Noted Time PHQ-9 Depression Total Score: 15 021 9:17 AM CDT documented as of this encounter Care Teams Major Case Detective Relationship Specialty Start [place] [address] [place] [address] PCP - General FAMILY PRACTICE 02/27/22 02/17/23 Aminta Morales NP [address] [place] [address] PCP - General NURSE PRACTITIONER 02/18/23 02/23/23 [place] [address] [address] [place] [address] PCP - General FAMILY PRACTICE 02/24/23 06/23/23 Aminta Morales NP [address] [place] [address] PCP - General NURSE PRACTITIONER 06/24/23 05/22/24 Kenneth Aguilar DO [address] [place] [address] PCP - General FAMILY PRACTICE 07/26/24 documented as of this encounter
--- OUTSIDE RECORDS SUMMARY | 2024-10-27 14:30 | XMS_ITS | Encounter Summary ---
Author Organization [facility] Address [address] [place] [address] Care Team Providers Care Stock Speculator Name Role Phone Maria Elena Robertson MD Primary Care Provider [phone] Aminta Morales NP Primary Care Provider [phone] Kenneth Aguilar DO Primary Care Provider [phone] Encounter Details Date Type Department Care Team (Late st Contact Info) Description 06/15/2023 [employer] Message Enc [facility] Family & Internal Medicine [facility] [address] [place] [address] [place] [address] [facility]. [address] [place] [address] Pulmonary referral Social History Tobacco Use Types Packs/Day Years [...] Progress Notes * April Villafana RN - 06/16/2023 10:38 AM CST Noted AG MACHINE OPERATOR * April Villafana RN - 06/15/2023 3:29 PM CST Please advise. See result note 06/09/2023 AG MACHINE OPERATOR documented in this encounter Plan of Treatment Not on file documented as of this encounter Visit Diagnoses Not on filedocumented in this encounter Additional Health Concerns Assessment Noted Time PHQ-9 Depression Total Score: 4 01/27/20 23 8:37 AM CDT documented as of this encounter Care Teams Stock Speculator Relationship Specialty Start [place] [address] [address] [place] [address] PCP - General FAMILY PRACTICE 02/24/23 06/23/23 Aminta Morales NP [address] [place] [address] PCP - General NURSE PRACTITIONER 06/24/23 05/22/24 Kenneth Aguilar DO [address] [place] [address] PCP - General FAMILY PRACTICE 07/26/24 documented as of this encounter
--- OUTSIDE RECORDS SUMMARY | 2024-10-27 14:30 | XMS_ITS | Encounter Summary ---
Author Organization [facility] Address [address] [place] [address] Care Team Providers Care Auto Parker Name Role Phone Maria Elena Robertson MD Primary Care Provider [phone] Aminta Morales NP Primary Care Provider [phone] Kenneth Aguilar DO Primary Care Provider [phone] Encounter Details Date Type Department Care Team (Late st Contact Info) Description 06/15/2023 [employer] Message Enc [facility] Medical Group Family & Internal Medicine [facility] [address] [place] [address] [place] [address] [facility]. [address] [place] [address] CT scan Social History Tobacco Use Types Packs/Day Years [...] Progress Notes * April Villafana RN - 06/15/2023 3:21 PM CST See result notes INATOR documented in this encounter Plan of Treatment Not on file documented as of this encounter Visit Diagnoses Not on filedocumented in this encounter Additional Health Concerns Assessment Noted Time PHQ-9 Depression Total Score: 4 01/27/20 8:37 AM CDT documented as of this encounter Care Teams Auto Parker Relationship Specialty Start [place] [address] [address] [place] [address] PCP - General FAMILY PRACTICE 02/24/23 06/23/23 Aminta Morales NP [address] [place] [address] PCP - General NURSE PRACTITIONER 06/24/23 05/22/24 Kenneth Aguilar DO [address] [place] [address] PCP - General FAMILY PRACTICE 07/26/24 documented as of this encounter
--- OUTSIDE RECORDS SUMMARY | 2024-10-27 14:30 | XMS_ITS | Encounter Summary ---
Author Organization [facility] Address [address] [place] [address] Care Team Providers Care Mechanical Striper Name Role Phone Maria Elena Robertson MD Primary Care Provider [phone] Aminta Morales NP Primary Care Provider [phone] Maria Elena Robertson MD Primary Care Provider [phone] Aminta Morlaes AVIATION ELECTRICIAN Primary Care Provider [phone] Kenneth Aguilar DO Primary Care Provider [phone] Encounter Details Date Type Department Care Team (Late st Contact Info) Description 10/09/2022 [employer] Message Enc [facility] Family & Internal Medicine [facility] [address] [place] [address] Maria Elena Robertson [place] [address] [place] [address]. [address] [place] [address] Lexapro Social History Tobacco Use Types Packs/Day Years [...] as of this encounter Progress Notes * Maria Elena Robertson MD - 10/12/2022 12:43 PM CST Lexapro was sent last week. Please check with pharmacy what the issue is. Thanks ASSISTANT * April Villafana RN - 10/09/2022 4:43 PM CST Please advise ASSISTANT documented in this encounter Plan of Treatment Not on file documented as of this encounter Visit Diagnoses Not on filedocumented in this encounter Additional Health Concerns Assessment Noted Time PHQ-9 Depression Total Score: 15 021 9:17 AM CDT documented as of this encounter Care Teams Mechanical Striper Relationship Specialty Start [place] [address] [place] [address] PCP - General FAMILY PRACTICE 02/27/22 02/17/23 Aminta Morales NP [address] [place] [address] PCP - General NURSE PRACTITIONER 02/18/23 02/23/23 [place] [address] [address] [place] [address] PCP - General FAMILY PRACTICE 02/24/23 06/23/23 Aminta Morales NP [address] [place] [address] PCP - General NURSE PRACTITIONER 06/24/23 05/22/24 Kenneth Aguilar DO [address] [place] [address] PCP - General FAMILY PRACTICE 07/26/24 documented as of this encounter
--- OUTSIDE RECORDS SUMMARY | 2024-10-27 14:30 | XMS_ITS | Referral Summary ---
Author Organization [facility] Physician Office Building [address] [place] [address] Care Team Providers Care Acting Teacher Name Role Phone Omar Satna MD Primary Care Provider [phone] Allergies Active Allergy Reactions Criticality Noted Date [...] questions and concerns. 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 Assessment & Plan (07/12/2017 10:50 AM SOIL SCIENCE PROFESSOR): Reviewed recent thyroid labs with pt. TSH - 61.2, low free T 4 - overt hypothyroidism - pt. Currently off all thyroid medication, except a thyroid diet supplement - pt. Wants to try [place] thyroid - she understands the risks , SE and benefits - start pt. 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 Assessment & Plan (07/12/2017 10:50 AM SOIL SCIENCE PROFESSOR): Obesity is improving with lifestyle modifications. Discussed [...] Refused),04/09/2021(Deferred: Patient Refused),08/09/2020(Deferred: Patient Refused),08/09/2020(Deferred: Patient Refused) Social History Tobacco Use Types Packs/Day Years [...] on file Legal Sex Female 11:59 PM SOIL SCIENCE PROFESSOR Gender Identity Not on file Sexual Orientation Not on file Last Filed Vital Signs Vital Sign Reading Time Taken Comments Blood Pressure 124/76 12/09/2021 8:48 AM CDT Pulse 76 12/09/2021 8:48 AM CDT Temperature 36.8 C (98.3 F) 12/09/2021 8:48 AM CDT Respiratory Rate 18 10/16/2021 9:23 AM SOIL SCIENCE PROFESSOR Oxygen Saturation 98% 12/09/2021 8:48 AM CDT Inhaled Oxygen Concentration - - Weight 95.4 kg (210 lb 6.4 oz) 12/09/2021 8:48 A M CDT Height 152.4 cm (5') 12/09/2021 8:48 AM CDT Body Mass Index 41.09 12/09/2021 8:48 AM CDT Plan of Treatment Not on file Procedures Procedure Name Priority Date/Time Associated Diagnosis [...] Laterality Modality Body N/A Radiographic Sharon ging Omar Santa MD IMG DXA PROCEDURES Final Result * COLONOSCOPY (03/24/2012 12:00 AM CDT) Anatomical Region Laterality Modality Other Narrative 03/24/2012 12:00 AM CDT Ordered by an unspecified provider. Procedure Note ProviderDiana MD - 03/24/2012 12:00 AM CDT PROCEDURE REPORT Patient: ANNETTE SHABAZZ Account: [id number] Room No: : 1955 Patient Type: [facility] Attend.: Santiago Quinn M.D. Admit Date: 03/24/2012 Dict.: Santiago Quinn M.D. Disch. Date:03/24/2012 NAME OF PROCEDURE: Colonoscopy. HISTORY: This is a 56-year-old female with abdominal pain, dysphagia, heartburn, as well as need for screening colonoscopy. PHYSICAL EXAMINATION: GENERAL: Obese female. LUNGS: Clear. CARDIOVASCULAR: Unremarkable. PROCEDURE: Colonoscopy was performed with a ShowMe.tv video endoscope.On digital exam, no abnormalities were palpable. We inserted the endoscopeand advanced it to the cecum. The colon was adequately prepped andvisualized. We could find no evidence of inflammation or neoplasia anywhere through thelength of the bowel. The patient tolerated the procedure without difficulty. POSTOPERATIVE DIAGNOSIS: Normal colonoscopy. Santiago Quinn M.D. /ghazal TD: 03/25/2012 08:36 Authenticated by Santiago Quinn MD On 03/25/2012 08:57:25 AM Historical Provider MD ENDOSCOPY PROCEDURES Shazia l Result from Last 3 Months or Most Recently Relevant to Health Maintenance Insurance [facility] MEDICARE ADVANTAGE [facility] MEDIC[facility] Address: [address] [address] [place] [address] IDPA IDPA [facility] MEDICARE ADVANTAGE [facility] MEDICARE ADVANTAGE IDPA IDPA [facility] MEDICARE ADVANTAGE [facility] MEDICARE Address: [address] [address] [place] [address] Care Teams Acting Teacher Relationship Specialty Start Date End [place] [address] PCP - General Family Medicine 08/05/21
[2024-10-27 14:31] VITALS: BP 99/72; PULSE 87; RESP 16; TEMP 36.3; O2SAT 100
[2024-10-27] MEDS: TETANUS,DIPHTHERIA,AC PERTUSSIS ADULT (0.5 ML) BOOSTRIX IM (14:44)
== END 2024-10-27 15:08 | disposition home or self-care (01) ==
PROVIDERS: Emergency Provider Nurse Practitioner; PCP Family Medicine
DX: S61.211A Laceration without foreign body of left index finger without damage to nail, initial encounter (principal); S60.411A Abrasion of left index finger, initial encounter; S60.413A Abrasion of left middle finger, initial encounter; W54.0XXA Bitten by dog, initial encounter; Z23 Encounter for immunization; M32.9 Systemic lupus erythematosus, unspecified; M06.9 Rheumatoid arthritis, unspecified; F17.210 Nicotine dependence, cigarettes, uncomplicated
CPT/HCPCS: 73130; 90471; 90715; 99213; G0463

== ENCOUNTER 2024-11-14 07:52 | Outpatient (CLI) | payer MEDICARE, MEDICAID, SELFPAY ==
--- NOTE | ~2024-11-14 | DEXA_ITS ---
Bone Density Report Name: JOSIAH DUMONT Age: 69 Sex: Female Ethnicity: White Date of : 1955 Indication: postmenopausal; screening for osteoporosis; asthma or emphysema; hysterectomy; rheumatoid arthritis; Referring Provider: KELSEA MOLINA Study: Bone densitometry was performed. Exam Date: November 14, 2024 Accession number: [id number] Bone Density: Region BMD T-score Z-score Classification AP Spine(L1-L4) 0.935 -1.0 1.0 Normal Femoral Neck (Left) 0.731 -1.1 0.6 Osteopenia Total Hip (Left) 0.922 -0.2 1.2 Normal Femoral Neck (Right) 0.709 -1.3 0.4 Osteopenia Total Hip (Right) 0.830 -0.9 0.5 Normal Total Hip Mean 0.876 -0.6 0.9 Normal World Health Organization criteria for BMD impression classify patients as: Normal (T-score at or above -1.0), Osteopenia (T-score between -1.0 and -2.5), or Osteoporosis (T-score at or below -2.5). 10-year Fracture Risk(1): Major Osteoporotic Fracture 11% Hip Fracture 1.9% Reported Risk Factors: [place] (), Neck BMD=0.709, BMI=36.8, smoking, rheumatoid arthritis (1) FRAX(R) Version 3.08. Fracture probability calculated for an untreated patient. Fracture probability may be lower if the patient has received treatment. Clinical Information Provided by Patient: Smokes Has rheumatoid arthritis Has used the following medications: Vitamin D, Calcium Has the following medical conditions: Asthma or Emphysema, Hysterectomy Patient maximum height was 60 Menopause Age: 46 No regular weight bearing exercise Does not regularly consume dairy products Drinks caffeinated beverages Onset of menses at age 12 Number of children 2 Impression: The patient has low bone mass, based on the Right Femoral Neck T-score. The patient has an estimated ten-year risk of hip fracture of 1.9% and an estimated ten-year risk of major fracture of 11%, based on the WHO FRAX algorithm. The patient has risk factors, including: smoking. Discussion: BONE DENSITY IS LOW AT ONE OR MORE SKELETAL SITES. This patient's lowest T-score is low at one or more skeletal sites. It meets the World Health Organization's (WHO) criteria for ?low bone mass? (T-score between -1.0 and -2.5). The patient's 10-year risk of fracture as calculated by FRAX is less than the threshold where pharmacological therapy is recommended by the National Osteoporosis Foundation (NOF). However, all treatment decisions require clinical judgment and consideration of individual patient factors, including patient preferences, comorbidities, previous drug use, risk factors not captured in the FRAX model (e.g., frailty, falls, vitamin D deficiency, increased bone turnover, interval significant decline in bone density) and possible under or overestimation of fracture risk by FRAX. The patient should follow a healthful lifestyle (good nutrition with adequate calcium and vitamin D, and appropriate weight-bearing exercise). Follow-Up: Consider repeating this study in 2 to 3 years to reassess this patient's status, or sooner if there is some new clinical indication. Reported by: ELENA on 11/14/2024 8:29:00 AM. Reviewed, dictated and finalized at location [facility]
--- OUTSIDE RECORDS SUMMARY | 2024-11-14 07:56 | XMS_ITS | Encounter Summary ---
Author Organization [facility] - [facility] Address [address] [place] [address] Care Team Providers Care Bologna Maker Name Role Phone Aminta Morales NP Primary Care Provider [phone] Kenneth Aguilar DO Primary Care Provider [phone] Encounter Details Date Type Department Care Team (Late st Contact Info) Description 09/22/2023 Hospital Orders Only [facility] Medical Group Family Medicine - [place] [address] [facility] [address] [place] [address] Aminta Morales, RISK CONTROL OFFICER [address] [place] [address] Social History Tobacco Use Types Packs/Day Years [...] as of this encounter Plan of Treatment Upcoming Encounters Date Type Department Care Team (Late st Contact Info) Description 11/20/2024 12:[address] [facility] [address] [place] [address] Jose Resendiz MD [address] [place] [address] 11/20/2024 1:[address] [facility] [address] [place] [address] Jose Resendiz MD [address] [place] [address] documented as of this encounter Visit Diagnoses Not on filedocumented in this encounter Additional Health Concerns Assessment Noted Time PHQ-9 Depression Total Score: 4 01/27/20 23 8:37 AM CDT documented as of this encounter Care Teams Bologna Maker Relationship Specialty Start Date End Date Aminta Morales NP [address] [place] [address] PCP - General NURSE PRACTITIONER 06/24/23 05/22/24 Kenneth Aguilar DO [address] [place] [address] PCP - General FAMILY PRACTICE 07/26/24 documented as of this encounter
--- OUTSIDE RECORDS SUMMARY | 2024-11-14 07:56 | XMS_ITS | Encounter Summary ---
Author Organization [facility] Address [address] [place] [address] Care Team Providers Care Credentialing Analyst Name Role Phone Aminta Morales NP Primary Care Provider [phone] Kenneth Aguilar DO Primary Care Provider [phone] Encounter Details Date Type Department Care Team (Late st Contact Info) Description 10/25/2023 [employer] Message Enc [facility] Medical Group Family Medicine - [place] [address] [facility] [address] [place] [address] Aminta Morales, RACHEL [address] [place] [address] [place] [address] Surgery Social History Tobacco Use Types Packs/Day [...] 12:[address] [facility] [address] [facility] [place] [address] Jose Resendiz MD [address] [place] [address] 11/20/2024 1:[address] [facility] [address] [place] [address] Jose Resendiz MD [address] [place] [address] documented as of this encounter Visit Diagnoses Not on filedocumented in this encounter Additional Health Concerns Assessment Noted Time PHQ-9 Depression Total Score: 10 10/06/ 024 3:24 PM ORTHOPEDIC NURSE documented as of this encounter Care Teams Credentialing Analyst Relationship Specialty Start Date End Date Aminta Morales NP [address] [place] [address] PCP - General NURSE PRACTITIONER 06/24/23 05/22/24 Kenneth Aguilar DO [address] [place] [address] PCP - General FAMILY PRACTICE 07/26/24 documented as of this encounter
--- OUTSIDE RECORDS SUMMARY | 2024-11-14 07:56 | XMS_ITS | Encounter Summary ---
Author Organization [facility] Address [facility] [place] [address] Care Team Providers Care Chrome Tanning Drum Operator Name Role Phone Aminta Morales NP Primary Care Provider [phone] Kenneth Aguilar DO Primary Care Provider [phone] Encounter Details Date Type Department Care Team (Late st Contact Info) Description 11/02/2023 Des[employer] Message Enc [facility] Medical Group Family Medicine - [place] [address] [facility] [address] [place] [address] Mer[place], [facility] Provider Referral Social History Tobacco Use Types Packs/Day Years Used Date Smoking Tobacco: Every Day Cigarettes 1 40 Passive Smoke Exposure: Current Smokeless Tobacco: Current Comments:When shes michael Alcohol Use Standard Drinks/Week Comments No 0 [...] 12:[address] [facility] [address] [place] [address] Jose Resendiz MD [address] [place] [address] 11/20/2024 1:[address] [facility] [address] [place] [address] Jose Resendiz MD [address] [place] [address] documented as of this encounter Visit Diagnoses Not on filedocumented in this encounter Additional Health Concerns Assessment Noted Time PHQ-9 Depression Total Score: 10 10/06/2 024 3:24 PM BOX COVERER HAND documented as of this encounter Care Teams Chrome Tanning Drum Operator Relationship Specialty Start Date End Date Aminta Morales NP [address] [place] [address] PCP - General NURSE PRACTITIONER 06/24/23 05/22/24 Kenneth Aguilar DO [address] [place] [address] PCP - General FAMILY PRACTICE 07/26/24 documented as of this encounter
--- OUTSIDE RECORDS SUMMARY | 2024-11-14 07:56 | XMS_ITS | Encounter Summary ---
Author Organization [facility] Address [facility] [place] [address] Care Team Providers Care Lead Front Desk Agent Name Role Phone Hong Hathaway MD Unavailable [phone] Dannielle Orozco MD Primary Care Provider Unavailab le Hong Hathaway MD Unavailable [phone] Ivania Han CASINO ENFORCEMENT AGENT Primary Care Provider Unav ailable Ivania Han CASINO ENFORCEMENT AGENT Primary Care Provider Unav ailable Chuyita Razo [facility] Primary Care Provider + Omar Santa MD Primary Care Provider [phone] Maria Elena Robertson MD Primary Care Provider [phone] Aminta Morales CASINO ENFORCEMENT AGENT Primary Care Provider [phone] Maria Elena Robertson MD Primary Care Provider [phone] Aminta Morales CASINO ENFORCEMENT AGENT Primary Care Provider [phone] Kenneth Aguilar DO Primary Care Provider [phone] Encounter Details Date Type Department Care Team (Late st Contact Info) Description 10/07/2015 Abstract [facility] CONVERSION [address] [place] [address] , Qian Shaffer MD Social History Tobacco [...] 12:[address] [facility] [address] [place] [address] Jose Resendiz MD [address] [place] [address] 11/20/2024 1:[address] [facility] [address] [place] [address] Jose Resendiz MD [address] [place] [address] documented as of this encounter Visit Diagnoses Not on filedocumented in this encounter Additional Health Concerns Infection Onset Date Last Indicated Resolved Time COVID-19 Rule Out 12/19/2020 12/20/2020 12/20/2020 8:41 AM CDT documented as of this encounter Care Teams Lead Front Desk Agent Relationship Specialty [place] [address] [place] [address] PCP - Med Group - [facility] Attributed Provider 10/07/18 06/12/19 [place] [address] [place] [address] PCP - General INTERNAL MEDICINE 09/25/19 12/07/19 [place] [address] [place] [address] PCP - Med Group - [facility] Attributed Provider 10/09/19 08/09/20 [place] [address] [place] [address] PCP - General NURSE PRACTITIONER 12/11/19 12/14/19 [place] [address] [place] [address] PCP - General NURSE PRACTITIONER 12/20/19 05/19/21 Chuyita Razo, BRAND MARKETING SPECIALIST- [address] [place] [address] PCP - General Nurse Practitioner Family 05/20/21 09/18/21 Omar Santa MD [address] [place] [address] PCP - General INTERNAL MEDICINE 02/17/22 02/26/22 [place] [address] [place] [address] PCP - General FAMILY PRACTICE 02/27/22 02/17/23 Aminta Morales NP [address] [place] [address] PCP - General NURSE PRACTITIONER 02/18/23 02/23/23 [place] [address] [address] [place] [address] PCP - General FAMILY PRACTICE 02/24/23 06/23/23 Aminta Morales NP [address] [place] [address] PCP - General NURSE PRACTITIONER 06/24/23 05/22/24 Kenneth Aguilar DO [address] [place] [address] PCP - General FAMILY PRACTICE 07/26/24 documented as of this encounter
--- OUTSIDE RECORDS SUMMARY | 2024-11-14 07:56 | XMS_ITS | Encounter Summary ---
Author Organization [facility] Address [address] [place] [address] Care Team Providers Care Security Representative Name Role Phone Aminta Morales NP Primary Care Provider [phone] Kenneth Aguilar DO Primary Care Provider [phone] Encounter Details Date Type Department Care Team (Late st Contact Info) Description 10/15/2023 [employer] Message Enc [facility] Medical Group Family Medicine - [place] [address] [facility] [address] [place] [address] Aminta Morales, RACHEL [address] [place] [address] [place] [address] Xray Social History Tobacco Use Types Packs/Day [...] 12:[address] [facility] [address] [facility] [place] [address] Jose Resendiz MD [address] [place] [address] 11/20/2024 1:[address] [facility] [address] [place] [address] Jose Resendiz MD [address] [place] [address] documented as of this encounter Visit Diagnoses Not on filedocumented in this encounter Additional Health Concerns Assessment Noted Time PHQ-9 Depression Total Score: 10 10/06/2 024 3:24 PM DIGITAL STRATEGY DIRECTOR documented as of this encounter Care Teams Security Representative Relationship Specialty Start Date End Date Aminta Morales NP [address] [place] [address] PCP - General NURSE PRACTITIONER 06/24/23 05/22/24 Kenneth Aguilar DO [address] [place] [address] PCP - General FAMILY PRACTICE 07/26/24 documented as of this encounter
--- OUTSIDE RECORDS SUMMARY | 2024-11-14 07:56 | XMS_ITS | Encounter Summary ---
Author Organization [facility] Address [address] [place] [address] Care Team Providers Care Capacitor Tester Name Role Phone Aminta Morales NP Primary Care Provider [phone] Kenneth Aguilar DO Primary Care Provider [phone] Encounter Details Date Type Department Care Team (Late st Contact Info) Description 10/25/2023 IncreaseCard Message Enc [facility] Medical Group Family Medicine - [place] [address] [facility] [address] [place] [address] Aminta Morales, RACHEL [address] [place] [address] [place] [address] RA or Lupus Social History Tobacco Use [...] 12:[address] [facility] [address] [facility] [place] [address] Jose Resendiz MD [address] [place] [address] 11/20/2024 1:[address] [facility] [address] [place] [address] Jose Resendiz MD [address] [place] [address] documented as of this encounter Visit Diagnoses Not on filedocumented in this encounter Additional Health Concerns Assessment Noted Time PHQ-9 Depression Total Score: 10 10/06/ 024 3:24 PM SUPERVISOR MOLD SHOP documented as of this encounter Care Teams Capacitor Tester Relationship Specialty Start Date End Date Aminta Morales NP [address] [place] [address] PCP - General NURSE PRACTITIONER 06/24/23 05/22/24 Kenneth Aguilar DO [address] [place] [address] PCP - General FAMILY PRACTICE 07/26/24 documented as of this encounter
--- OUTSIDE RECORDS SUMMARY | 2024-11-14 07:57 | XMS_ITS | Encounter Summary ---
Author Organization [facility] Address [facility] [place] [address] Care Team Providers Care Rail Operations Controller Name Role Phone Maria Elena Robertson MD Primary Care Provider [phone] Aminta Morales NP Primary Care Provider [phone] Maria Elena Robertson MD Primary Care Provider [phone] Aminta Morales NP Primary Care Provider [phone] Kenneth Aguilar DO Primary Care Provider [phone] Encounter Details Date Type Department Care Team (Late st Contact Info) Description 10/09/2022 Zaise[employer]t Message Enc [facility] Medical Group Family & Internal Medicine [address] [address] Maria Elena Robertson MD [address] [place] [address]. [address] [place], [place] [id number] Lexapro Social History Tobacco Use Types Packs/Day [...] with pharmacy what the issue is. Thanks OR SALES ADMINISTRATOR * April Villafana RN - 10/09/2022 4:43 PM CST Please advise OR SALES ADMINISTRATOR documented in this encounter Plan of Treatment Upcoming Encounters Date Type Department Care Team (Late st Contact Info) Description 11/20/2024 12:30 PM CDT Appointment [facility] [address] [place], [place] [address] Jose Resendiz MD [address] [place] [address] 11/20/2024 1:30 PM CDT Appointment [facility] [address] [place] [address] Jose Resendiz MD [address] [place] [address] documented as of this encounter Visit Diagnoses Not on filedocumented in this encounter Additional Health Concerns Assessment Noted Time PHQ-9 Depression Total Score: 15 021 9:17 AM CDT documented as of this encounter Care Teams Rail Operations Controller Relationship Specialty Start [place] [address] [place] [address] PCP - General FAMILY PRACTICE 02/27/22 02/17/23 Aminta Morales NP [address] [place] [address] PCP - General NURSE PRACTITIONER 02/18/23 02/23/23 [place] [address] [facility]. [address] [place] [address] PCP - General FAMILY PRACTICE 02/24/23 06/23/23 Aminta Morales NP [address] [place] [address] PCP - General NURSE PRACTITIONER 06/24/23 05/22/24 Kenneth Aguilar DO [address] [place] [address] PCP - General FAMILY PRACTICE 07/26/24 documented as of this encounter
--- OUTSIDE RECORDS SUMMARY | 2024-11-14 07:57 | XMS_ITS | Encounter Summary ---
Author Organization [facility] Address [address] [place] [address] Care Team Providers Care Digital Media Representative Name Role Phone Aminta Morales NP Primary Care Provider [phone] Kenneth Aguilar DO Primary Care Provider [phone] Encounter Details Date Type Department Care Team (Late st Contact Info) Description 11/08/2023 Q[employer]odian Message [facility] Family Medicine - [place] [address] [facility] [address] [place] [address] Aminta Morales, RACHEL [address] [place] [address] [place] [address] Test results Social History Tobacco Use Types [...] 12:[address] [facility] [address] [facility] [place] [address] Jose Resendiz MD [address] [place] [address] 11/20/2024 1:[address] [facility] [address] [place] [address] Jose Resendiz MD [address] [place] [address] documented as of this encounter Visit Diagnoses Not on filedocumented in this encounter Additional Health Concerns Assessment Noted Time PHQ-9 Depression Total Score: 10 10/06/2 024 3:24 PM HONING MACHINE OPERATOR PRODUCTION documented as of this encounter Care Teams Digital Media Representative Relationship Specialty Start Date End Date Aminta Morales NP [address] [place] [address] PCP - General NURSE PRACTITIONER 06/24/23 05/22/24 Kenneth Aguilar DO [address] [place] [address] PCP - General FAMILY PRACTICE 07/26/24 documented as of this encounter
--- OUTSIDE RECORDS SUMMARY | 2024-11-14 07:57 | XMS_ITS | Encounter Summary ---
Author Organization [facility] Address [address] [place] [address] Care Team Providers Care Coil Strapper Name Role Phone Aminta Morales NP Primary Care Provider [phone] Kenneth Aguilar DO Primary Care Provider [phone] Encounter Details Date Type Department Care Team (Late st Contact Info) Description 12/27/2023 [employer] Message Enc [facility] Medical Group Family Medicine - [place] [address] [facility] [address] [place] [address] Aminta Morales, RACHEL [address] [place] [address] Follow up Social History Tobacco Use Types [...] 12:[address] [facility] [address] [facility] [address] Jose Resendiz MD [address] [place] [address] 11/20/2024 1:[address] [facility] [address] [place] [address] Jose Resendiz MD [address] [place] [address] documented as of this encounter Visit Diagnoses Not on filedocumented in this encounter Additional Health Concerns Assessment Noted Time PHQ-9 Depression Total Score: 10 10/06/2 024 3:24 PM GRILL CHEF documented as of this encounter Care Teams Coil Strapper Relationship Specialty Start Date End Date Aminta Morales NP [address] [place] [address] PCP - General NURSE PRACTITIONER 06/24/23 05/22/24 Kenneth Aguilar DO [address] [place] [address] PCP - General FAMILY PRACTICE 07/26/24 documented as of this encounter
--- OUTSIDE RECORDS SUMMARY | 2024-11-14 07:57 | XMS_ITS | Encounter Summary ---
Author Organization [facility] Address [address] [place] [address] Care Team Providers Care Poultry Hatchery Manager Name Role Phone Maria Elena Robertson MD Primary Care Provider [phone] Aminta Morales NP Primary Care Provider [phone] Kenneth Aguilar DO Primary Care Provider [phone] Encounter Details Date Type Department Care Team (Late st Contact Info) Description 04/01/2023 ZoomFortht Message Enc [facility] Medical Group Family & Internal Medicine [address] [address] Maria Elena Robertson MD [address] [place] [address]. [address] [place] [address] Albuterol Social History Tobacco Use [...] 12:[address] [facility] [address] [place] [address] Jose Resendiz MD [address] [place] [address] 11/20/2024 1:[address] [facility] [address] [place] [place] [address] Jose Resendiz MD [address] [place] [address] documented as of this encounter Visit Diagnoses Not on filedocumented in this encounter Additional Health Concerns Assessment Noted Time PHQ-9 Depression Total Score: 4 01/27/20 23 8:37 AM CDT documented as of this encounter Care Teams Poultry Hatchery Manager Relationship Specialty Start [place] [address] [address] [place] [address] PCP - General FAMILY PRACTICE 02/24/23 06/23/23 Aminta Morales NP [address] [place] [address] [place] [address] PCP - General NURSE PRACTITIONER 06/24/23 05/22/24 Kenneth Aguilar DO [address] [place] [address] PCP - General FAMILY PRACTICE 07/26/24 documented as of this encounter
--- OUTSIDE RECORDS SUMMARY | 2024-11-14 07:57 | XMS_ITS | Encounter Summary ---
Author Organization [facility] Address [facility] [place] [address] Care Team Providers Care Lock Stitch Channeler Name Role Phone Hong Hathaway MD Unavailable [phone] Dannielle Orozco MD Primary Care Provider Unavailab le Hong Hathaway MD Unavailable [phone] Ivania Han MASTER MACHINIST Primary Care Provider Unav ailable Ivania Han MASTER MACHINIST Primary Care Provider Unav ailable Chuyita Razo [facility] Primary Care Provider + Omar Santa MD Primary Care Provider [phone] Maria Elena Robertson MD Primary Care Provider Aminta Morales MASTER MACHINIST Primary Care Provider [phone] Maria Elena Robertson MD Primary Care Provider [phone] Aminta Morales MASTER MACHINIST Primary Care Provider [phone] Kenneth Aguilar DO Primary Care Provider [phone] Encounter Details Date Type Department Care Team (Late st Contact Info) Description 04/13/2014 Abstract [facility] CON[facility] [address] [place] [address] , Qian Shaffer MD Social [...] 12:[address] [facility] [address] [place] [place] [address] Jose Resendiz MD [address] [place] [address] 11/20/2024 1:[address] [facility] [address] [place] [place] [address] Jose Resendiz MD [address] [place] [address] documented as of this encounter Visit Diagnoses Not on filedocumented in this encounter Additional Health Concerns Infection Onset Date Last Indicated Resolved Time COVID-19 Rule Out 12/19/2020 12/20/2020 12/20/2020 8:41 AM CDT documented as of this encounter Care Teams Lock Stitch Channeler Relationship Specialty [place] [address] [place] [address] PCP - Med Group - [facility] Attributed Provider 10/07/18 06/12/19 [place] [address] [place] [address] PCP - General INTERNAL MEDICINE 09/25/19 12/07/19 [place] [address] [place] [address] PCP - Med Group - [facility] Attributed Provider 10/09/19 08/09/20 [place] [address] [place] [address] PCP - General NURSE PRACTITIONER 12/11/19 12/14/19 [place] [address] [place] [address] PCP - General NURSE PRACTITIONER 12/20/19 05/19/21 Chuyita Razo, [facility] [address] [place] [address] PCP - General Nurse Practitioner Family 05/20/21 09/18/21 Omar Santa MD [address] [place] [address] PCP - General INTERNAL MEDICINE 02/17/22 02/26/22 [place] [address] [place] [address] PCP - General FAMILY PRACTICE 02/27/22 02/17/23 Aminta Morales NP [address] [place] [address] PCP - General NURSE PRACTITIONER 02/18/23 02/23/23 [place] [address] [address] [place] [address] PCP - General FAMILY PRACTICE 02/24/23 06/23/23 Aminta Morales NP [address] [place] [address] PCP - General NURSE PRACTITIONER 06/24/23 05/22/24 Kenneth Aguilar DO [address] [place] [address] PCP - General FAMILY PRACTICE 07/26/24 documented as of this encounter
--- OUTSIDE RECORDS SUMMARY | 2024-11-14 07:57 | XMS_ITS | Encounter Summary ---
Author Organization [facility] Address [address] [place] [address] Care Team Providers Care Janitorial Maintenance Worker Name Role Phone Aminta Morales NP Primary Care Provider [phone] Kenneth Aguilar DO Primary Care Provider [phone] Encounter Details Date Type Department Care Team (Late st Contact Info) Description 03/13/2024 [employer] Message Enc [facility] Medical Group Family Medicine - [place] [address] [facility] [address] [place] [address] Aminta Morales, RACHEL [address] [place] [address] Labs Social History Tobacco Use Types Packs/Day [...] 12:[address] [facility] [address] [facility] [address] Jose Resendiz MD [address] [place] [address] 11/20/2024 1:[address] [facility] [address] [place] [address] Jose Resendiz MD [address] [place] [address] documented as of this encounter Visit Diagnoses Not on filedocumented in this encounter Additional Health Concerns Assessment Noted Time PHQ-9 Depression Total Score: 10 10/06/ 024 3:24 PM HADOOP ARCHITECT documented as of this encounter Care Teams Janitorial Maintenance Worker Relationship Specialty Start Date End Date Aminta Morales NP [address] [place] [address] PCP - General NURSE PRACTITIONER 06/24/23 05/22/24 Kenneth Aguilar DO [address] [place] [address] PCP - General FAMILY PRACTICE 07/26/24 documented as of this encounter
--- OUTSIDE RECORDS SUMMARY | 2024-11-14 07:57 | XMS_ITS | Encounter Summary ---
Author Organization [facility] Address [facility] [place] [address] Care Team Providers Care Soda Dispenser Name Role Phone Hong Hathaway MD Unavailable [phone] Dannielle Orozco MD Primary Care Provider Unavailab le Hong Hathaway MD Unavailable [phone] Ivania Han APPLICATIONS SUPPORT SPECIALIST Primary Care Provider Unav ailable Ivania Han APPLICATIONS SUPPORT SPECIALIST Primary Care Provider Unav ailable Chuyita Razo [facility] Primary Care Provider + Omar Santa MD Primary Care Provider [phone] Maria Elena Robertson MD Primary Care Provider [phone] Aminta Morales APPLICATIONS SUPPORT SPECIALIST Primary Care Provider [phone] Maria Elena Robertson MD Primary Care Provider [phone] Aminta Morales APPLICATIONS SUPPORT SPECIALIST Primary Care Provider [phone] Kenneth Aguilar DO Primary Care Provider [phone] Encounter Details Date Type Department Care Team (Late st Contact Info) Description 12/16/[address] [facility] Medical Group Priority Care - Greg Yusuf [address] [place] [address] Scanned, Documents Social History Tobacco [...] 12:00 AM CDT ANNETTE DUMONT MD: ACCT: [id number] ADMIT/SERVICE DATE: 12/16/18 DISCHARGE DATE: 12/16/18 : 1955 PT TYPE: DEP SDC SEX: F ORD SITE: [facility] REPORT OF PATHOLOGICAL EXAMINATION DATE OF SURGERY: 12/16/2018 SURGICAL PATH NO: [id number] DATE OBTAINED: 12/16/2018 DATE RETURNED: 12/19/2018 CHART [...] THE WALL MEASURES 0.2 CM IN THICKNESS. ROTARY SHEAR WORKER HELPER SECTIONS ARE SUBMITTED IN A SINGLE CASSETTE. TD/RC 12/16/2018 12/16/2018 02:28 P MICROSCOPIC EXAMINATION: SECTIONS OF THE GALLBLADDER SHOW MARKED HYPEREMIA AND EDEMA. THERE IS CHRONIC INFLAMMATION CONSISTING MAINLY OF LYMPHOCYTES PRESENT IN THE MUCOSA AND MUSCULAR WALL. SECTION OF THE CYSTIC DUCT SHOWS FOCAL EROSION OF THE MUCOSA WITH CHRONIC INFLAMMATION. ELECTRONICALLY SIGNED BY GABINO MATHEW MD 12/19/2018 01:25 P DT: KEERTHI:12/19/2018 DOC NO: [id number] documented in this encounter Plan of Treatment Upcoming Encounters Date Type Department Care Team (Late st Contact Info) Description 11/20/2024 12:[address] [facility] [address] [place] [address] Jose Resendiz MD [address] [facility] [address] 11/20/2024 1:30 PM CDT Appointment [facility] [address] [place] [address] Jose Resendiz MD [address] [place] [address] documented as of this encounter Visit Diagnoses Not on filedocumented in this encounter Additional Health Concerns Infection Onset Date Last Indicated Resolved Time COVID-19 Rule Out 12/19/2020 12/20/2020 12/20/2020 8:41 AM CDT documented as of this encounter Care Teams Soda Dispenser Relationship Specialty [place] [address] [place] [address] PCP - Med Group - [facility] Attributed Provider 10/07/18 06/12/19 [place] [address] [place] [address] PCP - General INTERNAL MEDICINE 09/25/19 12/07/19 [place] [address] [place] [address] PCP - Med Group - [facility] Attributed Provider 10/09/19 08/09/20 [place] [address] [place] [place] [address] PCP - General NURSE PRACTITIONER 12/11/19 12/14/19 [place] [address] [place] [place] [address] PCP - General NURSE PRACTITIONER 12/20/19 05/19/21 Chuyita Razo, [facility] [address] [place] [place] [address] PCP - General Nurse Practitioner Family 05/20/21 09/18/21 Omar Santa MD [address] [place] [address] PCP - General INTERNAL MEDICINE 02/17/22 02/26/22 [place] [address] [place] [address] PCP - General FAMILY PRACTICE 02/27/22 02/17/23 Aminta Morales, APPLICATIONS SUPPORT SPECIALIST [address] [place] [address] PCP - General NURSE PRACTITIONER 02/18/23 02/23/23 [place] [address] [place] [address] PCP - General FAMILY PRACTICE 02/24/23 06/23/23 Aminta Morales, APPLICATIONS SUPPORT SPECIALIST [address] [place] [address] PCP - General NURSE PRACTITIONER 06/24/23 05/22/24 Kenneth Aguilar DO [address] [place] [address] PCP - General FAMILY PRACTICE 07/26/24 documented as of this encounter
--- OUTSIDE RECORDS SUMMARY | 2024-11-14 07:57 | XMS_ITS | Encounter Summary ---
Author Organization [facility] Address [address] [place] [address] Care Team Providers Care Software Sales Consultant Name Role Phone Aminta Morales NP Primary Care Provider [phone] Kenneth Aguilar DO Primary Care Provider [phone] Encounter Details Date Type Department Care Team (Late st Contact Info) Description 08/19/20[address] [employer] [address] [facility] Medical Group Family Medicine - [place] [address] [facility] [address] [place] [address] Aminta Morales, RACHEL [address] [place], [place] [address] HAPPY BIRTHDAY! Social History Tobacco Use Types [...] 12:[address] [facility] [address] [place] [address] Jose Resendiz MD [address] [place] [address] 11/20/2024 1:[address] [facility] [address] [place] [address] Jose Resendiz MD [address] [place] [address] documented as of this encounter Visit Diagnoses Not on filedocumented in this encounter Additional Health Concerns Assessment Noted Time PHQ-9 Depression Total Score: 4 01/27/20 23 8:37 AM CDT documented as of this encounter Care Teams Software Sales Consultant Relationship Specialty Start Date End Date Aminta Morales NP [address] [place] [address] PCP - General NURSE PRACTITIONER 06/24/23 05/22/24 Kenneth Aguilar DO [address] [place] [address] PCP - General FAMILY PRACTICE 07/26/24 documented as of this encounter
--- OUTSIDE RECORDS SUMMARY | 2024-11-14 07:57 | XMS_ITS | Encounter Summary ---
Author Organization [facility] Address [address] [place] [address] Care Team Providers Care Woodworking Machine Offbearer Name Role Phone Maria Elena Robertson MD Primary Care Provider [phone] Aminta Morales NP Primary Care Provider [phone] Maria Elena Robertson MD Primary Care Provider [phone] Aminta Morales NP Primary Care Provider [phone] Kenneth Aguilar DO Primary Care Provider [phone] Encounter Details Date Type Department Care Team (Late st Contact Info) Description 02/03/[address] [facility] Medical Group - [facility] [address] [place], [place] [address] Giorgio, [facility] Provider Air Quality Message Social History Tobacco [...] Recorded In the last 10 days, have levi u been in contact with someone who was confirmed or suspected to have Coronavirus/COVID-19? No / Unsure 01/20/2023 9:05 AM CDT documented as of this encounter Plan of Treatment Upcoming Encounters Date Type Department Care Team (Late st Contact Info) Description 11/20/2024 12:30 PM CDT Appointment [facility] [address] [place], [place] [address] Jose Resendiz MD [address] [place] [address] 11/20/2024 1:30 PM CDT Appointment [facility] [address] [place] [address] Jose Resendiz MD [address] [place] [address] documented as of this encounter Visit Diagnoses Not on filedocumented in this encounter Additional Health Concerns Assessment Noted Time PHQ-9 Depression Total Score: 4 01/27/20 23 8:37 AM CDT documented as of this encounter Care Teams Woodworking Machine Offbearer Relationship Specialty Start [place] [address] [facility] [place] [address] PCP - General FAMILY PRACTICE 02/27/22 02/17/23 Aminta Morales NP [address] [place] [address] PCP - General NURSE PRACTITIONER 02/18/23 02/23/23 [place] [address] [facility] [address] [address] [place] [address] PCP - General FAMILY PRACTICE 02/24/23 06/23/23 Aminta Morales NP [address] [place] [address] PCP - General NURSE PRACTITIONER 06/24/23 05/22/24 Kenneth Aguilar DO [address] [place] [address] PCP - General FAMILY PRACTICE 07/26/24 documented as of this encounter
--- OUTSIDE RECORDS SUMMARY | 2024-11-14 07:57 | XMS_ITS | Encounter Summary ---
Author Organization [facility] Address [address] [place] [address] Care Team Providers Care Shuttle Buggy Operator Name Role Phone Aminta Morales NP Primary Care Provider [phone] Kenneth Aguilar DO Primary Care Provider [phone] Encounter Details Date Type Department Care Team (Late st Contact Info) Description 04/12/2024 [employer] Message Enc [facility] Medical Group Family Medicine - [place] [address] [facility] [address] [place] [address] Aminta Morales, RACHEL [address] [place] [address] Arthritis pain Social History Tobacco Use Types [...] 12:[address] [facility] [address] [facility] [place] [address] Jose Resendiz MD [address] [place] [address] 11/20/2024 1:[address] [facility] [address] [place] [address] Jose Resendiz MD [address] [place] [address] documented as of this encounter Visit Diagnoses Not on filedocumented in this encounter Additional Health Concerns Assessment Noted Time PHQ-9 Depression Total Score: 10 10/06/2 024 3:24 PM CONE CLASSIFIER TENDER documented as of this encounter Care Teams Shuttle Buggy Operator Relationship Specialty Start Date End Date Aminta Morales NP [address] [place] [address] PCP - General NURSE PRACTITIONER 06/24/23 05/22/24 Kenneth Aguilar DO [address] [place] [address] PCP - General FAMILY PRACTICE 07/26/24 documented as of this encounter
--- OUTSIDE RECORDS SUMMARY | 2024-11-14 07:57 | XMS_ITS | Encounter Summary ---
Author Organization [facility] Address [address] [place] [address] Care Team Providers Care Geotechnical Laboratory Technician Name Role Phone Maria Elena Robertson MD Primary Care Provider [phone] Aminta Morales NP Primary Care Provider [phone] Kenneth Aguilar DO Primary Care Provider [phone] Encounter Details Date Type Department Care Team (Late st Contact Info) Description 06/15/2023 [employer] Message Enc [facility] Medical Group Family & Internal Medicine [facility] [address] [place] [address] Maria Elena Robertson MD [address] [place] [address]. [address] [place] [address] Pulmonary referral Social History Tobacco [...] RN - 06/16/2023 10:38 AM CST Noted ATTACHING MACHINE TENDER * April Villafana RN - 06/15/2023 3:29 PM CST Please advise. See result note 06/09/2023 ATTACHING MACHINE TENDER documented in this encounter Plan of Treatment Upcoming Encounters Date Type Department Care Team (Late st Contact Info) Description 11/20/2024 12:30 PM CDT Appointment [facility] [address] [place] [address] Jose Resendiz MD [address] [place] [address] 11/20/2024 1:30 PM CDT Appointment [facility] [address] [place] [address] Jose Resendiz MD [address] [place] [address] documented as of this encounter Visit Diagnoses Not on filedocumented in this encounter Additional Health Concerns Assessment Noted Time PHQ-9 Depression Total Score: 4 01/27/20 23 8:37 AM CDT documented as of this encounter Care Teams Geotechnical Laboratory Technician Relationship Specialty Start [place] [address] [facility]. [address] [place] [address] PCP - General FAMILY PRACTICE 02/24/23 06/23/23 Aimnta Morales NP [address] [place] [address] PCP - General NURSE PRACTITIONER 06/24/23 05/22/24 Kenneth Aguilar DO [address] [place] [address] PCP - General FAMILY PRACTICE 07/26/24 documented as of this encounter
--- OUTSIDE RECORDS SUMMARY | 2024-11-14 07:57 | XMS_ITS | Encounter Summary ---
Author Organization [facility] Address [facility] [place] [address] Care Team Providers Care Hostess Party Sales Representative Name Role Phone Maria Elena Robertson MD Primary Care Provider [phone] Aminta Morales NP Primary Care Provider [phone] Maria Elena Robertson MD Primary Care Provider [phone] Aminta Morales NP Primary Care Provider [phone] Kenneth Aguilar DO Primary Care Provider [phone] Encounter Details Date Type Department Care Team (Late st Contact Info) Description 07/20/2022 [employer] Message Enc [facility] Medical Group Family & Internal Medicine [address] [address] Maria Elena Robertson MD [address] [place] [address]. [address] [place], [place] [id number] Cancel today's appointment Social History Tobacco Use [...] FYI - see patient note about phones LOPER documented in this encounter Plan of Treatment Upcoming Encounters Date Type Department Care Team (Late st Contact Info) Description 11/20/2024 12:30 PM CDT Appointment [facility] [address] [place] [address] Jose Resendiz MD [address] [place] [address] 11/20/2024 1:30 PM CDT Appointment [facility] [address] [place] [address] Jose Resendiz MD [address] [place] [address] documented as of this encounter Visit Diagnoses Not on filedocumented in this encounter Additional Health Concerns Assessment Noted Time PHQ-9 Depression Total Score: 15 021 9:17 AM CDT documented as of this encounter Care Teams Hostess Party Sales Representative Relationship Specialty Start [place] [address] [place] [address] PCP - General FAMILY PRACTICE 02/27/22 02/17/23 Aminta Morales NP [address] [place] [address] PCP - General NURSE PRACTITIONER 02/18/23 02/23/23 [place] [address] [address] [place] [id number] PCP - General FAMILY PRACTICE 02/24/23 06/23/23 Aminta Morales NP [address] [place] [address] PCP - General NURSE PRACTITIONER 06/24/23 05/22/24 Kenneth Aguilar DO [address] [place] [address] PCP - General FAMILY PRACTICE 07/26/24 documented as of this encounter
--- OUTSIDE RECORDS SUMMARY | 2024-11-14 07:57 | XMS_ITS | Encounter Summary ---
Author Organization [facility] Address [facility] [place] [address] Care Team Providers Care Technical Maintenance Technician Name Role Phone Maria Elena Robertson MD Primary Care Provider [phone] Aminta Morales NP Primary Care Provider [phone] Maria Elena Robertson MD Primary Care Provider [phone] Aminta Morales NP Primary Care Provider [phone] Kenneth Aguilar DO Primary Care Provider [phone] Encounter Details Date Type Department Care Team (Late st Contact Info) Description 09/07/2022 [employer] Message Enc [facility] Medical Group Family & Internal Medicine [address] [address] Maria Elena Robertson MD [address] [place] [address]. [address] [place], [place] [id number] Question regarding CBC W/DIFF AUTOMATED Social History [...] Coronavirus/COVID-19? No / Unsure 08/13/2022 8:27 AM GARMENT SEWING MACHINE OPERATOR documented as of this encounter Plan of Treatment Upcoming Encounters Date Type Department Care Team (Late st Contact Info) Description 11/20/2024 12:[address] [facility] [address] [facility] [facility] [address] Jose Resendiz MD [address] [place] [address] 11/20/2024 1:[address] [facility] [address] [place] [address] Jose Resendiz MD [address] [place] [address] documented as of this encounter Visit Diagnoses Not on filedocumented in this encounter Additional Health Concerns Assessment Noted Time PHQ-9 Depression Total Score: 15 021 9:17 AM CDT documented as of this encounter Care Teams Technical Maintenance Technician Relationship Specialty Start [place] [address] [facility] [place] [address] PCP - General FAMILY PRACTICE 02/27/22 02/17/23 Aminta Morales NP [address] [place] [address] PCP - General NURSE PRACTITIONER 02/18/23 02/23/23 [place] [address] [address] [place] [address] PCP - General FAMILY PRACTICE 02/24/23 06/23/23 Aminta Morales NP [address] [place] [address] PCP - General NURSE PRACTITIONER 06/24/23 05/22/24 Kenneth Aguilar DO [address] [place] [address] PCP - General FAMILY PRACTICE 07/26/24 documented as of this encounter
--- OUTSIDE RECORDS SUMMARY | 2024-11-14 07:57 | XMS_ITS | Encounter Summary ---
Author Organization [facility] Address [facility] [place] [address] Care Team Providers Care Inside Parts Sales Name Role Phone Hong Hathaway MD Unavailable [phone] Dannielle Orozco MD Primary Care Provider Unavailab le Hong Hathaway MD Unavailable [phone] Ivania Han MARINE ENGINE DRIVER Primary Care Provider Unav ailable Ivania Han MARINE ENGINE DRIVER Primary Care Provider Unav ailable Chuyita Razo [facility] Primary Care Provider + Omar Santa MD Primary Care Provider [phone] Maria Elena Robertson MD Primary Care Provider [phone] Aminta Morales MARINE ENGINE DRIVER Primary Care Provider [phone] Maria Elena Robertson MD Primary Care Provider [phone] Aminta Morales MARINE ENGINE DRIVER Primary Care Provider [phone] Kenneth Aguilar DO Primary Care Provider [phone] Encounter Details Date Type Department Care Team (Late st Contact Info) Description 01/14/2019 Abstract [facility] CONVERSION [address] [place] [address] , Qian Shaffer MD Social [...] Info) Description 11/20/2024 12:30 PM CDT [facility] [facility] [address] [place] [address] Jose Resendiz MD [address] [place] [address] 11/20/2024 1:30 PM CDT [place] [facility] [address] [place] [address] Jose Resendiz MD [address] [place] [address] documented as of this encounter Visit Diagnoses Not on filedocumented in this encounter Additional Health Concerns Infection Onset Date Last Indicated Resolved Time COVID-19 Rule Out 12/19/2020 12/20/2020 12/20/2020 8:41 AM CDT documented as of this encounter Care Teams Inside Parts Sales Relationship Specialty [place] [address] [place] [address] PCP - Med Group - [facility] Attributed Provider 10/07/18 06/12/19 [place] [address] [place] [address] PCP - General INTERNAL MEDICINE 09/25/19 12/07/19 [place] [address] [place] [address] PCP - Med Group - [facility] Attributed Provider 10/09/19 08/09/20 Ivania Han, MARINE ENGINE DRIVER [address] [facility] [place] [address] PCP - General NURSE PRACTITIONER 12/11/19 12/14/19 Ivania Han MARINE ENGINE DRIVER [address] [place] [address] PCP - General NURSE PRACTITIONER 12/20/19 05/19/21 Chuyita Razo [facility] [address] [place] [address] PCP - General Nurse Practitioner Family 05/20/21 09/18/21 Omar Santa MD [address] [place] [address] PCP - General INTERNAL MEDICINE 02/17/22 02/26/22 [place] [address] [place] [address] PCP - General FAMILY PRACTICE 02/27/22 02/17/23 Aminta Morales NP [address] [place] [address] PCP - General NURSE PRACTITIONER 02/18/23 02/23/23 [place] [address] [address] [address] PCP - General FAMILY PRACTICE 02/24/23 06/23/23 Aminta Morales NP [address] [place] [address] PCP - General NURSE PRACTITIONER 06/24/23 05/22/24 Kenneth Aguilar DO [address] [place] [address] PCP - General FAMILY PRACTICE 07/26/24 documented as of this encounter
--- OUTSIDE RECORDS SUMMARY | 2024-11-14 07:57 | XMS_ITS | Encounter Summary ---
Author Organization [facility] Address [facility] [place] [address] Care Team Providers Care Senior Behavioral Scientist Name Role Phone Maria Elena Robertson MD Primary Care Provider Aminta Morales NP Primary Care Provider [phone] Maria Elena Robertson MD Primary Care Provider [phone] Aminta Morales NP Primary Care Provider [phone] Kenneth Aguilar DO Primary Care Provider [phone] Encounter Details Date Type Department Care Team (Late st Contact Info) Description 09/25/2022 Reologica Instrumentst Message Enc [facility] Medical Group Family & Internal Medicine [address] [address] Maria Elena Robertson MD [address] [place] [address]. [address] [place], [place] [id number] Omar Crocker Social History Tobacco Use Types [...] It was not on current medication list HEADLIGHT MECHANIC documented in this encounter Plan of Treatment Upcoming Encounters Date Type Department Care Team (Late st Contact Info) Description 11/20/2024 12:30 PM CDT [facility]ointment [facility] [address] [place] [address] Jose Resendiz MD [address] [place] [address] 11/20/2024 1:30 PM CDT Appointment [facility] [address] [place] [address] Jose Resendiz MD [address] [place] [address] documented as of this encounter Visit Diagnoses Not on filedocumented in this encounter Additional Health Concerns Assessment Noted Time PHQ-9 Depression Total Score: 15 021 9:17 AM CDT documented as of this encounter Care Teams Senior Behavioral Scientist Relationship Specialty Start [place] [address] [place] [address] PCP - General FAMILY PRACTICE 02/27/22 02/17/23 Aminta Morales NP [address] [place] [address] PCP - General NURSE PRACTITIONER 02/18/23 02/23/23 [place] [address] [address] [place] [id number] PCP - General FAMILY PRACTICE 02/24/23 06/23/23 Aminta Morales NP [address] [place] [address] PCP - General NURSE PRACTITIONER 06/24/23 05/22/24 Kenneth Aguilar DO [address] [place] [address] PCP - General FAMILY PRACTICE 07/26/24 documented as of this encounter
--- OUTSIDE RECORDS SUMMARY | 2024-11-14 07:57 | XMS_ITS | Referral Summary ---
Author Organization [facility] Physician Office Building [address] [place] [address] Care Team Providers Care Business Process Associate Name Role Phone Omar Santa MD Primary Care Provider [phone] Allergies Active Allergy Reactions Criticality Noted Date [...] questions and concerns. 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 Assessment & Plan (07/12/2017 10:50 AM PHYSICAL THERAPIST CLINIC DIRECTOR): Reviewed recent thyroid labs with pt. TSH - 61.2, low free T 4 - overt hypothyroidism - pt. Currently off all thyroid medication, except a thyroid diet supplement - pt. Wants to try [place] thyroid - she understands the risks , SE and benefits - start pt. 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 Assessment & Plan (07/12/2017 10:50 AM PHYSICAL THERAPIST CLINIC DIRECTOR): Obesity is improving with lifestyle modifications. Discussed [...] on file Legal Sex Female 11:59 PM PHYSICAL THERAPIST CLINIC DIRECTOR Gender Identity Not on file Sexual Orientation Not on file Last Filed Vital Signs Vital Sign Reading Time Taken Comments Blood Pressure 124/76 12/09/2021 8:48 AM CDT Pulse 76 12/09/2021 8:48 AM CDT Temperature 36.8 C (98.3 F) 12/09/2021 8:48 AM CDT Respiratory Rate 18 10/16/2021 9:23 AM PHYSICAL THERAPIST CLINIC DIRECTOR Oxygen Saturation 98% 12/09/2021 8:48 AM CDT [...] CDT PROCEDURE REPORT Patient: ANNETTE SHABAZZ Account: [id number] Room No: : 1955 Patient Type: [facility] Attend.: Santiago Quinn M.D. Admit Date: 03/24/2012 Dict.: Santiago Quinn M.D. Disch. Date:03/24/2012 NAME OF PROCEDURE: Colonoscopy. HISTORY: This is a 56-year-old female with abdominal pain, dysphagia, heartburn, as well as need for screening colonoscopy. PHYSICAL EXAMINATION: GENERAL: Obese female. LUNGS: Clear. CARDIOVASCULAR: Unremarkable. PROCEDURE: Colonoscopy was performed with a VEEDIMS video endoscope.On digital exam, no abnormalities were [...] Most Recently Relevant to Health Maintenance Insurance [facility] MEDICARE AD[facility]ANTAGE [facility] Address: [address] [address] [place] [address] IDPA IDPA [facility] MEDICARE ADVANTAGE [facility] MEDICARE ADVANTAGE IDPA IDPA [facility] MEDICARE ADVANTAGE [facility] Address: [address] [address] [place] [address] Care Teams Business Process Associate Relationship Specialty Start Date End [place] [address] PCP - General Family Medicine 08/05/21
--- OUTSIDE RECORDS SUMMARY | 2024-11-14 07:57 | XMS_ITS | Encounter Summary ---
Author Organization [facility] Address [address] [place] [address] Care Team Providers Care Butcherette Name Role Phone Aminta Morales NP Primary Care Provider [phone] Kenneth Aguilar DO Primary Care Provider [phone] Encounter Details Date Type Department Care Team (Late st Contact Info) Description 01/26/2024 Cloud Elements Message Enc [facility] Medical Group Family Medicine - [place] [address] [facility] [address] [place] [address] Aminta Morales, RACHEL [address] [place] [address] Advair Social History Tobacco Use Types Packs/Day [...] 12:[address] [facility] [address] [place] [address] Jose Resendiz MD [address] [place] [address] 11/20/2024 1:[address] [facility] [address] [place] [address] Jose Resendiz MD [address] [place] [address] documented as of this encounter Visit Diagnoses Not on filedocumented in this encounter Additional Health Concerns Assessment Noted Time PHQ-9 Depression Total Score: 10 10/06/2 024 3:24 PM VIDEO GAME CREATOR documented as of this encounter Care Teams Butcherette Relationship Specialty Start Date End Date Aminta Morales NP [address] [place] [address] PCP - General NURSE PRACTITIONER 06/24/23 05/22/24 Kenneth Aguilar DO [address] [place] [address] PCP - General FAMILY PRACTICE 07/26/24 documented as of this encounter
--- OUTSIDE RECORDS SUMMARY | 2024-11-14 07:57 | XMS_ITS | Encounter Summary ---
Author Organization [facility] Address [address] [place] [address] Care Team Providers Care Pantry Goods Worker Name Role Phone Aminta Morales NP Primary Care Provider [phone] Kenneth Aguilar DO Primary Care Provider [phone] Encounter Details Date Type Department Care Team (Late st Contact Info) Description 04/01/2024 My Digital Shield Message Enc [facility] Medical Group Family Medicine - [place] [address] [facility] [address] [place] [address] Aminta Morales, RACHEL [address] [place] [address] Right hand Social History Tobacco Use Types [...] 12:[address] [facility] [address] [facility] [place] [address] Jose Resendiz MD [address] [place] [address] 11/20/2024 1:[address] [facility] [place] [address] [place] [address] Jose Resendiz MD [address] [place] [address] documented as of this encounter Visit Diagnoses Not on filedocumented in this encounter Additional Health Concerns Assessment Noted Time PHQ-9 Depression Total Score: 10 10/06/2 024 3:24 PM TERRAZZO ROLLER documented as of this encounter Care Teams Pantry Goods Worker Relationship Specialty Start Date End Date Aminta Morales NP [address] [place] [address] PCP - General NURSE PRACTITIONER 06/24/23 05/22/24 Kenneth Aguilar DO [address] [place] [address] PCP - General FAMILY PRACTICE 07/26/24 documented as of this encounter
--- OUTSIDE RECORDS SUMMARY | 2024-11-14 07:57 | XMS_ITS | Encounter Summary ---
Author Organization [facility] Address [facility]6 [place] [address] Care Team Providers Care Systems Technologist Name Role Phone Maria Elena Robertson MD Primary Care Provider [phone] Aminta Morales NP Primary Care Provider [phone] Maria Elena Robertson MD Primary Care Provider [phone] Aminta Morales NP Primary Care Provider [phone] Kenneth Aguilar DO Primary Care Provider [phone] Encounter Details Date Type Department Care Team (Late st Contact Info) Description 05/26/2022 Jixeet Message Enc [facility] Medical Group Family & Internal Medicine [address] [address] Maria Elena Robertson MD [address] [place] [address]. [address] [place] [address] Omar Crocker's blood sugars Social History Tobacco [...] Info) Description 11/20/2024 12:30 PM CDT Appointment [facility] [address] [place] [address] Jose Resendiz MD [address] [place] [address] 11/20/2024 1:30 PM CDT App[facility]ment [facility] [address] [facility] [place] [place] [address] Jose Resendiz MD [address] [place] [address] documented as of this encounter Visit Diagnoses Not on filedocumented in this encounter Additional Health Concerns Assessment Noted Time PHQ-9 Depression Total Score: 15 021 9:17 AM CDT documented as of this encounter Care Teams Systems Technologist Relationship Specialty Start [place] [address] [place] [id number] PCP - General FAMILY PRACTICE 02/27/22 02/17/23 Aminta Morales NP [address] [place] [address] PCP - General NURSE PRACTITIONER 02/18/23 02/23/23 [place] [address] [address] [place] [address] PCP - General FAMILY PRACTICE 02/24/23 06/23/23 Aminta Morales NP [address] [place] [address] PCP - General NURSE PRACTITIONER 06/24/23 05/22/24 Kenneth Aguilar DO [address] [place] [address] PCP - General FAMILY PRACTICE 07/26/24 documented as of this encounter
--- OUTSIDE RECORDS SUMMARY | 2024-11-14 07:57 | XMS_ITS | Encounter Summary ---
Author Organization [facility] Address [facility] [place] [address] Care Team Providers Care Reaming Machine Operator For Plastic Name Role Phone Maria Elena Robertson MD Primary Care Provider [phone] Aminta Morales NP Primary Care Provider [phone] Maria Elena Robertson MD Primary Care Provider [phone] Aminta Morales NP Primary Care Provider [phone] Kenneth Aguilar DO Primary Care Provider [phone] Encounter Details Date Type Department Care Team (Late st Contact Info) Description 06/26/2022 Lemkot Message Enc [facility] Medical Group Family & Internal Medicine [address] [address] Maria Elena Robertson MD [address] [place] [address]. [address] [place], [place] [phone] Gum infection Social History Tobacco Use Types [...] Info) Description 11/20/2024 12:30 PM CDT Appointment [facility] [address] [place] [address] Jose Resendiz MD [address] [place] [address] 11/20/2024 1:30 PM CDT Appointment [facility] [address] [place] [address] Jose Resendiz MD [address] [place] [address] documented as of this encounter Visit Diagnoses Not on filedocumented in this encounter Additional Health Concerns Assessment Noted Time PHQ-9 Depression Total Score: 15 021 9:17 AM CDT documented as of this encounter Care Teams Reaming Machine Operator For Plastic Relationship Specialty Start [place] [address] [place], [place] [phone] PCP - General FAMILY PRACTICE 02/27/22 02/17/23 Aminta Morales NP [address] [place] [address] PCP - General NURSE PRACTITIONER 02/18/23 02/23/23 [place] [address] [facility] [address] [place] [address] PCP - General FAMILY PRACTICE 02/24/23 06/23/23 Aminta Morales NP [address] [place] [address] PCP - General NURSE PRACTITIONER 06/24/23 05/22/24 Kenneth Aguilar DO [address] [place] [address] PCP - General FAMILY PRACTICE 07/26/24 documented as of this encounter
--- OUTSIDE RECORDS SUMMARY | 2024-11-14 07:57 | XMS_ITS | Clinical Summary ---
Author Organization [facility] Physician Office Building [address] [place] [address] Care Team Providers Care Gizzard Puller Name Role Phone Omar Santa MD Primary Care Provider [phone] Allergies Active Allergy Reactions Criticality Noted Date [...] questions and concerns. 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 Assessment & Plan (07/12/2017 10:50 AM TRAVOGRAPH OPERATOR): Reviewed recent thyroid labs with pt. TSH - 61.2, low free T 4 - overt hypothyroidism - pt. Currently off all thyroid medication, except a thyroid diet supplement - pt. Wants to try [place] thyroid - she understands the risks , SE and benefits - start pt. 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 Assessment & Plan (07/12/2017 10:50 AM TRAVOGRAPH OPERATOR): Obesity is improving with lifestyle modifications. Discussed [...] on file Legal Sex Female 11:59 PM TRAVOGRAPH OPERATOR Gender Identity Not on file Sexual Orientation Not on file Obstetrics History Last Filed Vital Signs Vital Sign Reading Time Taken Comments Blood Pressure 124/76 12/09/2021 8:48 AM CDT Pulse 76 12/09/2021 8:48 AM CDT Temperature 36.8 C (98.3 F) 12/09/2021 8:48 AM CDT Respiratory Rate 18 10/16/2021 9:23 AM TRAVOGRAPH OPERATOR Oxygen Saturation 98% 12/09/2021 8:48 AM CDT [...] CDT PROCEDURE REPORT Patient: ANNETTE SHABAZZ Account: [id number] Room No: : 1955 Patient Type: [facility] Attend.: Santiago Quinn M.D. Admit Date: 03/24/2012 Dict.: Santiago Quinn M.D. Disch. Date:03/24/2012 NAME OF PROCEDURE: Colonoscopy. HISTORY: This is a 56-year-old female with abdominal pain, dysphagia, heartburn, as well as need for screening colonoscopy. PHYSICAL EXAMINATION: GENERAL: Obese female. LUNGS: Clear. CARDIOVASCULAR: Unremarkable. PROCEDURE: Colonoscopy was performed with a WorldViz video endoscope.On digital exam, no abnormalities were [...] Most Recently Relevant to Health Maintenance Insurance [facility]ICARE [facility] Address: [address] [address] [place] [address] IDPA IDPA [facility] MEDICARE ADVANTAGE [facility] MEDICARE ADVANTAGE Member Subscriber Plan / Payer (Ef fective 2016-Present) Name:ANNETTE DUMONT Relation to Subscriber:Self Name:Annette Dumont Payer ID:[id number] ([facility]) Type:UHC MEDICARE Address: [address] [id number] IDPA IDPA [facility] MEDICARE ADVANTAGE [facility] Address: [address] [address] [place] [address] Care Teams Gizzard Puller Relationship Specialty Start Date End Date Omar Santa MD [address] [place] [address] PCP - General Family Medicine 08/05/21
--- OUTSIDE RECORDS SUMMARY | 2024-11-14 07:57 | XMS_ITS | Encounter Summary ---
Author Organization [facility] Address [address] [place] [address] Care Team Providers Care Manager Copy Name Role Phone Maria Elena Robertson MD Primary Care Provider [phone] Aminta Morales NP Primary Care Provider [phone] Kenneth Aguilar DO Primary Care Provider [phone] Encounter Details Date Type Department Care Team (Late st Contact Info) Description 06/15/2023 Monster Digitalt Message Enc [facility] Medical Group Family & Internal Medicine [facility] [address] [place] [address] Maria Elena Robertson MD [address] [place] [address]. [address] [place], [place] [id number] [address] scan Social History Tobacco Use Types [...] 06/15/2023 3:21 PM CST See result notes ITION SERVICES WORKER documented in this encounter Plan of Treatment Upcoming Encounters Date Type Department Care Team (Late st Contact Info) Description 11/20/2024 12:30 PM CDT Appointment [facility] [address] [place] [address] Jose Resendiz MD [address] [place] [address] 11/20/2024 1:30 PM CDT Appointment [facility] [place] [address] [place] [address] Jose Resendiz MD [address] [place] [address] documented as of this encounter Visit Diagnoses Not on filedocumented in this encounter Additional Health Concerns Assessment Noted Time PHQ-9 Depression Total Score: 4 01/27/20 23 8:37 AM CDT documented as of this encounter Care Teams Manager Copy Relationship Specialty Start [place] [address] [facility]. [address] [place] [address] PCP - General FAMILY PRACTICE 02/24/23 06/23/23 Aminta Morales NP [address] [place] [address] PCP - General NURSE PRACTITIONER 06/24/23 05/22/24 Kenneth Aguilar DO [address] [place] [address] PCP - General FAMILY PRACTICE 07/26/24 documented as of this encounter
--- OUTSIDE RECORDS SUMMARY | 2024-11-14 07:57 | XMS_ITS | Encounter Summary ---
Author Organization [facility] Address [address] [place] [address] Care Team Providers Care Core Sticker Name Role Phone Maria Elena Robertson MD Primary Care Provider [phone] Aminta Morales NP Primary Care Provider [phone] Kenneth Aguilar DO Primary Care Provider [phone] Encounter Details Date Type Department Care Team (Late st Contact Info) Description 06/16/2023 Hitat Message Enc [facility] Medical Group Family & Internal Medicine [facility] [id number] [place] [address] Maria Elena Robertson MD [address] [place] [address]. [address] [place] [address] Referral Social History Tobacco Use [...] Description 11/20/2024 12:[address] [address] [place] [address] Jose Resendiz MD [address] [place] [address] 11/20/2024 1:[address] [address] [place] [place] [address] Jose Resendiz MD [address] [place] [address] documented as of this encounter Visit Diagnoses Not on filedocumented in this encounter Additional Health Concerns Assessment Noted Time PHQ-9 Depression Total Score: 4 01/27/20 23 8:37 AM CDT documented as of this encounter Care Teams Core Sticker Relationship Specialty Start [place] [address] [address] [facility]. [address] [place] [address] PCP - General FAMILY PRACTICE 02/24/23 06/23/23 Aminta Morales NP [address] [place] [address] PCP - General NURSE PRACTITIONER 06/24/23 05/22/24 Kenneth Aguilar DO [address] [place] [address] PCP - General FAMILY PRACTICE 07/26/24 documented as of this encounter
--- OUTSIDE RECORDS SUMMARY | 2024-11-14 07:57 | XMS_ITS | Encounter Summary ---
Author Organization [facility] Address [facility] [place] [address] Care Team Providers Care Kettle Coordinator Name Role Phone Maria Elena Robertson MD Primary Care Provider [phone] Aminta Morales NP Primary Care Provider [phone] Maria Elena Robertson MD Primary Care Provider [phone] Aminta Morales NP Primary Care Provider [phone] Kenneth Aguilar DO Primary Care Provider Encounter Details Date Type Department Care Team (Late st Contact Info) Description 09/07/2022 Ravel Lawt Message Enc [facility] Medical Group Family & Internal Medicine [address] [address] Maria Elena Robertson MD [address] [place] [address]. [address] [place], [place] [id number] Question regarding TSH W/REFLEX Social History Tobacco [...] Coronavirus/COVID-19? No / Unsure 08/13/2022 8:27 AM SHOW CARD WRITER documented as of this encounter Progress Notes * Adamaris Tolbert RN - 09/16/2022 9:53 AM CST Please advise, see Sawyer' message previously. CARD WRITER * Adamaris Tolbert RN - 09/08/2022 3:52 PM CST Her US was completed in June with no acute findings. Message left for patient to inquire about how she is taking her medication. Chloe Fox CARD WRITER * Adamaris Tolbert RN - 09/07/2022 12:13 PM CST Please advise. CARD WRITER documented in this encounter Plan of Treatment Upcoming Encounters Date Type Department Care Team (Late st Contact Info) Description 11/20/2024 12:30 PM CDT Appointment [facility] [address] [place], [place] [phone] Jose Resendiz MD [address] [place] [address] 11/20/2024 1:30 PM CDT Appointment [facility] [address] [place] [address] Jose Resendiz MD [address] [place] [address] documented as of this encounter Visit Diagnoses Not on filedocumented in this encounter Additional Health Concerns Assessment Noted Time PHQ-9 Depression Total Score: 15 021 9:17 AM CDT documented as of this encounter Care Teams Kettle Coordinator Relationship Specialty [place] [address] [place] [address] PCP - General FAMILY PRACTICE 02/27/22 02/17/23 Aminta Morales NP [address] [place] [address] PCP - General NURSE PRACTITIONER 02/18/23 02/23/23 [place] [address] [place] [address] PCP - General FAMILY PRACTICE 02/24/23 06/23/23 Aminta Morales NP [address] [place] [address] PCP - General NURSE PRACTITIONER 06/24/23 05/22/24 Kenneth Aguilar DO [address] [place] [address] PCP - General FAMILY PRACTICE 07/26/24 documented as of this encounter
--- OUTSIDE RECORDS SUMMARY | 2024-11-14 07:57 | XMS_ITS | Encounter Summary ---
Author Organization [facility] Address [address] [place] [address] Care Team Providers Care Infection Control Specialist Name Role Phone Maria Elena Robertson MD Primary Care Provider [phone] Aminta Morales NP Primary Care Provider [phone] Maria Elena Robertson MD Primary Care Provider [phone] Aminta Morales NP Primary Care Provider [phone] Kenneth Aguilar DO Primary Care Provider [phone] Encounter Details Date Type Department Care Team (Late st Contact Info) Description 05/13/2022 Within3 Message Enc [facility] Medical Group Family & Internal Medicine [address] [address] Giorgio [facility] Provider Mammogram Social History Tobacco Use [...] 12:[address] [facility] [address] [place] [address] Jose Resendiz MD [address] [place] [address] 11/20/2024 1:[address] [facility] [address] [place] [address] Jose Resendiz MD [address] [place] [address] documented as of this encounter Visit Diagnoses Not on filedocumented in this encounter Additional Health Concerns Assessment Noted Time PHQ-9 Depression Total Score: 15 021 9:17 AM CDT documented as of this encounter Care Teams Infection Control Specialist Relationship Specialty [place] [address] [place] [address] PCP - General FAMILY PRACTICE 02/27/22 02/17/23 Aminta Morales NP [address] [place] [address] PCP - General NURSE PRACTITIONER 02/18/23 02/23/23 [place] [address] [place], [place] [id number] PCP - General FAMILY PRACTICE 02/24/23 06/23/23 Aminta Morales NP [address] [place] [address] PCP - General NURSE PRACTITIONER 06/24/23 05/22/24 Kenneth Aguilar DO [address] [place] [address] PCP - General FAMILY PRACTICE 07/26/24 documented as of this encounter
--- OUTSIDE RECORDS SUMMARY | 2024-11-14 07:57 | XMS_ITS | Encounter Summary ---
Author Organization [facility] Address [address] [place] [address] Care Team Providers Care Gyroscope Technician Name Role Phone Aminta Morales NP Primary Care Provider [phone] Kenneth Aguilar DO Primary Care Provider [phone] Encounter Details Date Type Department Care Team (Late st Contact Info) Description 02/22/2024 Secucloud Message Enc [facility] Medical Group Family Medicine - [place] [address] [facility] [address] [place] [address] Aminta Morales, RACHEL [address] [place] [address] Osteoarthritis Social History Tobacco Use Types Packs/Day [...] home she would like to see someone [facility], [place], or [place]. documented in this encounter Plan of Treatment Upcoming Encounters Date Type Department Care Team (Late st Contact Info) Description 11/20/2024 12:30 PM CDT Appointment [facility] [place] [address] [place] [address] Jose Resendiz MD [address] [place] [address] 11/20/2024 1:30 PM CDT Appointment [facility] [place] [address] [place] [address] oJse Resendiz MD [address] [place] [address] documented as of this encounter Visit Diagnoses Not on filedocumented in this encounter Additional Health Concerns Assessment Noted Time PHQ-9 Depression Total Score: 10 10/06/2 024 3:24 PM FINANCIAL AID COUNSELOR documented as of this encounter Care Teams Gyroscope Technician Relationship Specialty Start Date End Date Aminta Morales NP [address] [place] [address] PCP - General NURSE PRACTITIONER 06/24/23 05/22/24 Kenneth Aguilar DO [address] [place] [address] PCP - General FAMILY PRACTICE 07/26/24 documented as of this encounter
--- OUTSIDE RECORDS SUMMARY | 2024-11-14 07:58 | XMS_ITS | Clinical Summary ---
Author Organization [facility] Address [facility] [place] [address] Care Team Providers Care Etl Programmer Name Role Phone Kenneth Aguilar Primary Care Provider [phone] Allergies Active Allergy Reactions Criticality Noted Date [...] HFA (PROAIR HFA) 108 (90 Base) MCG/ACT inhalerIndication s:Mild intermittent asthma without complication (HHS/HCC) Inhale 2 puffs into the lungs every 6 (six) hours as needed for Shortness of breath. 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 FOR 14 DAYS 90 tablet 1 4 Active Fluticasone-Umecl idin-Vilant (TRELEGY ELLIPTA) 200-62.5-25 MCG/ACT AEROSOL POWDER, BREATH ACTIVATEDIndicati ons:Chronic obstructive pulmonary disease, unspecified COPD type (CMS/HCC HHS/HCC),Moderate persistent asthma, unspecified whether complicated (HHS/HCC) Inhale 1 puff into the lungs daily. 28 each 3 4 Active Active Problems Problem Noted Date Diagnosed [...] 09/07/2019 Assessment & Plan (09/07/2019 10:12 AM DATA INTEGRATION ANALYST): Suspect symptoms due to reflux will restart [...] questions and concerns. 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 Assessment & Plan (09/07/2019 10:04 AM DATA INTEGRATION ANALYST): Con't FU with endo at [facility]. Last TSH, T3 and T4 in Aug were normal Cervical disc herniation 01/17/2016 Varicosities of leg 01/08/2016 Nocturia 05/22/2015 Vitamin D deficiency 05/22/2015 Depressive disorder 11/02/2014 Assessment & Plan (09/07/2019 10:05 AM DATA INTEGRATION ANALYST): Advised may be causing her memory loss does not wish to start anything at this time Nicotine dependence 11/02/2014 Adjustment disorder with anxiety 10/01/2014 Insomnia 09/05/2014 Asthma ([facility]) 01/12/2014 COPD (chronic obstructive pu lmonary disease) ([facility]) 01/12/2014 Hypercholesterolemia 01/12/2014 Memory loss 01/12/2014 Lymphadenopathy [...] Department Care Team Description 10/05/2024 10:01 AM DATA INTEGRATION ANALYST - 10/05/2024 12:02 PM [facility] Emergency [facility] Emergency Room [address] [place] [address] Martin Hernandez MD Knee Pain Discharge Disposition: [...] Q uit: No; Counseling Given: Yes Comments:When shes reaady Alcohol Use Standard Drinks/Week [...] Comments Blood Pressure 145/101 10/05/2024 12:01 PM DATA INTEGRATION ANALYST Pulse 88 10/05/2024 12:01 PM DATA INTEGRATION ANALYST Temperature 36.3 C (97.4 F) 10/05/2024 12:01 PM DATA INTEGRATION ANALYST Respiratory Rate 18 10/05/2024 12:01 PM DATA INTEGRATION ANALYST Oxygen Saturation 98% 10/05/2024 12:01 PM DATA INTEGRATION ANALYST Inhaled Oxygen Concentration - - Weight 83 kg (183 lb) 10/05/2024 10:05 AM DATA INTEGRATION ANALYST Height 152.4 cm (5') 10/05/2024 10:05 AM DATA INTEGRATION ANALYST Body Mass Index 35.74 10/05/2024 10:05 AM DATA INTEGRATION ANALYST Plan of Treatment Upcoming Encounters Date Type Department Care Team (Late st Contact Info) Description 11/20/2024 12:30 PM CDT Appointment [facility] [place] [address] [place] [address] Jose Resendiz MD [address] [place] [address] 11/20/2024 1:30 PM CDT Appointment [facility] [place] [address] [place] [address] Jose Resendiz MD [address] [place] [address] Health Maintenance Due Date Last Done Comments RSV Immunization or 60+ Years (1 - Risk 60-74 years 1-dose series) 2016 Annual Medicare Wellness Visit 2021 COVID-19 Vaccine (2023- season) 2024 Mammogram Screening 06/03/2024 06/03/2022 Lung Cancer Screening 06/09/2024 06/09/2023 , 08/22/2021, 07/02/2021, Additional history exists PHQ-2 (Physician [place]) 08/09/2024 10/06/2023 Colorectal Cancer Screening Colonoscopy (10 [...] topic Meningococcal Vaccine Aged Out No corby alexus eligible based on patient's age to complete this topic RSV Immunizations Under 20 Months Aged Out No longer eligible based on patient's age to complete this topic Procedures Procedure Name Priority Date/Time Associated Diagnosis Comments USV LINA DUPLEX LOW EXT MILES STAT 10/05/2024 11:21 AM DATA INTEGRATION ANALYST HEPATITIS C ANTIBODY Routine 07/26/2024 1:51 PM DATA INTEGRATION ANALYST Need for hepatitis C screening test RA (rheumatoid arthritis) ([facility] HHS/HCC) Lupus (systemic lupus erythematosus) ([facility]) Neuropathy Fatigue Arthritis Myalgia Hypomagnesemia Screening for [...] DUPLEX LOW EXT MILES (10/05/2024 11:21 AM DATA INTEGRATION ANALYST) Anatomical Region Laterality Modality Extremity Ultrasound 10/05/2024 11:2 4 AM DATA INTEGRATION ANALYST Impressions 10/05/2024 11:26 AM DATA INTEGRATION ANALYST ===== IMPRESSION: ===== No evidence of DVT in the bilateral lower extremities. Ordered By: MARTIN HERNANDEZ Interpreted By: Caden Johnson MD, 10/05/2024 11:24 AM Narrative 10/05/2024 11:26 AM DATA INTEGRATION ANALYST [address] [place] [address] Examination: Lower extremity doppler ultrasound Exam Date/Time: [...] Procedure Note Caden Johnson MD - 10/05/[address] [place] [place] [address] Examination: Lower extremity doppler ultrasound Exam Date/Time: [...] MD, 10/05/2024 11:24 AM Martin Hernandez MD [facility] Final Result * HEPATITIS C ANTIBODY (07/26/2024 1:51 PM DATA INTEGRATION ANALYST) HEPATITIS C AB NON-REACTI VE NON-REACTI VE 07/26/2024 8:47 PM DATA INTEGRATION ANALYST [facility] 07/26/2024 1:51 PM DATA INTEGRATION ANALYST Jose Resendiz MD LABORATORY Final Result [facility] [address] [place] [address], [place] [phone] * CT CHEST WO LUNG NOD FLUP (06/09/2023 7:53 AM CDT) Anatomical Region Laterality Modality Chest Computed Tomogra phy 06/15/2023 11:2 7 AM DATA INTEGRATION ANALYST Impressions 06/15/2023 12:14 PM DATA INTEGRATION ANALYST IMPRESSION: 1. Stable multiple bilateral pulmonary nodules since 12/27/2020. No further workup necessary. Considered benign. 2. No pulmonary nodules. Postsurgical changes detailed above. 3. Stable nonpathologic sized mediastinal lymph nodes. Ordered By: MARIA ELENA ROBERTSON Interpreted By: Nancie Johnson, 06/15/2023 11:27 AM Narrative 06/15/2023 12:14 PM DATA INTEGRATION ANALYST IMAGING STUDIES: CT CHEST WO LUNG NOD [...] Interpreted By: Nancie Johnson, 06/15/2023 11:27 AM us Maria Elena Robertson MD CT Final Result [...] similar appearance to 01/17/2014. Ordered By: WALLY SANTA Interpreted By: Apple García, 12/25/2021 11:20 AM [...] similar appearance to 01/17/2014. Ordered By: WALLY SANTA Interpreted By: Apple García, 12/25/2021 11:20 AM Wally Santa MD DEXA Final Result * Colonoscopy (12/31/2015 12:00 AM CDT) 12/31/2015 12/31/2015 Narrative [facility] TO EPIC CONVERSION - 12/31/2015 12:00 AM CDT Documented hx of procedure Procedure Note Qian Rojas MD - 06/12/2018 Documented hx of procedure Generic Edmund Rojas MD GI PROCEDURE ORDERABLES Final Result [facility] TO EPIC CONVERSION from Last 3 Months or Most Recently Relevant to Health Maintenance Insurance MEDICAID [facility] MEDICAID Care Teams Etl Programmer Relationship Specialty Start Date End Date Kenneth Aguilar DO [address] [place] [address] PCP - General FAMILY PRACTICE 07/26/24
--- OUTSIDE RECORDS SUMMARY | 2024-11-14 07:58 | XMS_ITS | Clinical Summary ---
Author Organization [facility] Address [address] [place] [address] Care Team Providers Care Car Checker Name Role Phone Kenneth Aguilar Primary Care Provider [phone] Source Comments [facility],non-owned Affiliates and Associated Physician Practices is amultiple site organization consisting of ambulatory clinics and hospital sitesin [place], [place], [place] and [place]. This disclosure is being madepursuant to the Care Everywhere program and may not contain all information available regarding this patient. Last updated 18.[facility] Allergies Active Allergy Reactions Criticality Noted Date [...] Office Visit [facility] - Rheumatology [address] [place] [address], [place] [address] Lauren Zelaya MD [address] [place] [address] [place] [id number] Health Maintenance Due Date Last Done Comments [...] VACCINE (1 - 2023-2 5 season) 2024 MAMMOGRAM 06/03/2024 06/03/2022 DEPRESSION SCREENING 08/09/2024 MEDICARE AWV CALENDAR YEAR 2024 INFLUENZA VACCINE (Season Ended) 2025 05/22/2015 HEPATITIS C SCREENING Completed 12/31/2016 BONE DENSITY [...] Antibody <0.1 0.0 - 0.9 s/co ratio [facility] [employer] ([employer]) 12/31/2016 12:1 7 PM CDT 12/31/2016 Narrative [facility] ([employer]) - 01/06/2017 7:12 AM CDT Performed at: 01 [address] [id number] Support Clerk: Paul Spears PhD, Phone: [phone] Specimen Comment: A courtesy copy of this report has been sent to Specimen Comment: [phone], . Maxwell Dean MD LAB - CHEMISTRY SHY JAMES [facility] (BEAK[facility]) * (ABNORMAL) COMPREHENSIVE METABOLIC PANEL (12/31/2016 12:17 PM CDT) Glucose 109(H) 65 - 99 mg/dL [facility] (BEAK[facility]) BUN 12 8 - 27 mg/dL [facility] ([facility]) Creatinine 0.94 0.57 - 1.00 mg/dL [facility] ([facility]) eGFR non- 66 >59 mL/min/1.7 3 [facility] (BEAKER) eGFR 76 >59 mL/min/1.7 3 [facility] (BEAK[facility]) BUN/Creatinine Ratio 13 12 - 28 [facility] (BEAKER) Sodium 142 134 - 144 mmol/L [facility] (BEAKER) Potassium 4.5 3.5 - 5.2 mmol/L [facility] (BEAK[facility]) Chloride 101 96 - 106 mmol/L [facility] ([facility]) CO2 25 18 - 29 mmol/L [facility] (BEAKER) Calcium 9.4 8.7 - 10.3 mg/dL [facility] (BEAK[facility]) Protein Total 6.8 6.0 - 8.5 g/dL [facility] (BEAKER) Albumin 4.2 3.6 - 4.8 g/dL [facility] (BEAK[facility]) Globulin Total 2.6 1.5 - 4.5 g/dL [facility] (BEAK[facility]) Albumin/Globulin Ratio 1.6 1.2 - 2.2 [facility] (BEAKER) Bilirubin Total 0.3 0.0 - 1.2 mg/dL [facility] (BEAK[facility]) Alkaline Phosphatase 108 39 - 117 IU/L [facility] (BEAK[facility]) AST 27 0 - 40 IU/L [facility] (BEAKER) ALT 33(H) 0 - 32 IU/L [facility] (BEAKER) Blood specimen (specimen) BLOOD SPECIMEN / Unknown 12/31/2016 12:17 PM CDT 12/31/2016 Narrative [facility] ([facility]) - 01/06/2017 7:12 AM CDT Route to PCP, [place], Performed at: - [facility] [address] [id number] Support Clerk: Paul Spears PhD, Phone: [phone] Specimen Comment: A courtesy copy of this report has been sent to Specimen Comment: [phone], . Maxwell Dean MD LAB - CHEMISTRY SHY JAMES [facility] ([place]) from Last 3 Months or Most Recently Relevant to Health Maintenance Care Teams Car Checker Relationship Specialty Start Date End Date Kenneth Aguilar DO [address] [place] [phone] PCP - General Family Medicine 10/02/24
== END 2024-11-14 07:53 | disposition home or self-care (01) ==
LOC: ANHIMG 07:53
PROVIDERS: PCP Family Medicine; Visit Provider Family Medicine
DX: M85.852 Other specified disorders of bone density and structure, left thigh (principal); M85.851 Other specified disorders of bone density and structure, right thigh; Z78.0 Asymptomatic menopausal state
CPT/HCPCS: 77080